=== PATIENT | male | born 1955 | race Caucasian/White ===

== ENCOUNTER 2023-07-24 06:15 | Day surgery (SDC) | payer MEDICARE, BC, SELFPAY ==
[2023-07-24 08:00] VITALS: BMI 45.1
[2023-07-24 08:10] VITALS: BP 156/94
[2023-07-24 08:30] VITALS: BMI 45.1
[2023-07-24 09:55] VITALS: BP 133/74
[2023-07-24 10:00] VITALS: BP 135/74
[2023-07-24 10:15] VITALS: BP 142/83
[2023-07-24 10:31] VITALS: BP 134/83
== END 2023-07-24 10:45 | disposition home or self-care (01) ==
LOC: GI 06:15
PROVIDERS: ATTENDING PHYSICIAN Internal Medicine Gastroenterology
DX: Z12.11 Encounter for screening for malignant neoplasm of colon (principal); D12.2 Benign neoplasm of ascending colon; D12.4 Benign neoplasm of descending colon; D12.5 Benign neoplasm of sigmoid colon; K57.30 Diverticulosis of large intestine without perforation or abscess without bleeding; D12.8 Benign neoplasm of rectum; K62.1 Rectal polyp; K64.8 Other hemorrhoids; K22.70 Barrett's esophagus without dysplasia; K44.9 Diaphragmatic hernia without obstruction or gangrene; R12 Heartburn
CPT/HCPCS: 45385; 45380; 43239; 88305; 88342

== ENCOUNTER → 2023-09-18 10:57 | Outpatient (REF) | payer MEDICARE, BC, SELFPAY ==
[2023-09-19 11:30] LABS: ALT (SGPT) 20 U/L (0-50); AST (SGOT) 23 U/L (17-59); Albumin 4.1 g/dl (3.5-5.0); Alkaline Phosphatase 59 U/L (38-126); Blood Urea Nitrogen 17 mg/dl (9-20); Calcium 9.8 mg/dl (8.4-10.2); Carbon Dioxide 26 mmol/L (22-30); Chloride 104 mmol/L (98-107); Glucose 110 mg/dl (70-99); HDL Cholesterol 57 mg/dl; LDL Cholesterol, Calculated 72 mg/dl; Potassium 4.1 mmol/L (3.5-5.1); Sodium 139 mmol/L (135-145); Total Bilirubin 0.7 mg/dl (0.2-1.3); Total Cholesterol 175 mg/dl (50-199); Total Protein 6.8 g/dl (6.3-8.2); Triglyceride 230 mg/dl (10-149); Uric Acid 8.2 mg/dl (3.5-8.5); Very Low Density Lipoprotein 46 mg/dl (0-30); eGFR > 60.00
[2023-09-19 12:22] LABS: Glycohemoglobin (HgbA1c) 5.5 % (4.0-5.6)
[2023-09-19 14:40] LABS: PSA, Total - Screen 1.95 ng/ml (0.0-4.0)
== END ==
LOC: CLAB 10:57
PROVIDERS: ATTENDING PHYSICIAN Nurse Practitioner
DX: R73.01 Impaired fasting glucose (principal); E78.2 Mixed hyperlipidemia; M10.9 Gout, unspecified; Z12.5 Encounter for screening for malignant neoplasm of prostate
CPT/HCPCS: 80053; 80061; 83036; 84550; G0103

== ENCOUNTER → 2024-03-12 10:10 | Outpatient (REF) | payer MEDICARE, BC, SELFPAY ==
[2024-03-12 12:13] LABS: ALT (SGPT) 23 U/L (0-50); AST (SGOT) 24 U/L (17-59); Albumin 4.2 g/dl (3.5-5.0); Alkaline Phosphatase 47 U/L (38-126); Blood Urea Nitrogen 17 mg/dl (9-20); Calcium 9.2 mg/dl (8.4-10.2); Carbon Dioxide 28 mmol/L (22-30); Chloride 102 mmol/L (98-107); Glucose 119 mg/dl (70-99); HDL Cholesterol 99 mg/dl; LDL Cholesterol, Calculated 79 mg/dl; Potassium 4.6 mmol/L (3.5-5.1); Sodium 140 mmol/L (135-145); Total Bilirubin 0.7 mg/dl (0.2-1.3); Total Cholesterol 215 mg/dl (50-199); Total Protein 6.6 g/dl (6.3-8.2); Triglyceride 186 mg/dl (10-149); Uric Acid 8.3 mg/dl (3.5-8.5); Very Low Density Lipoprotein 37 mg/dl (0-30); eGFR > 60.00
[2024-03-12 12:48] LABS: Glycohemoglobin (HgbA1c) 5.3 % (4.0-5.6)
== END ==
LOC: REG 10:10
PROVIDERS: ATTENDING PHYSICIAN Nurse Practitioner
DX: R73.01 Impaired fasting glucose (principal); E78.2 Mixed hyperlipidemia; M10.9 Gout, unspecified
CPT/HCPCS: 36415; 80053; 80061; 83036; 84550

== ENCOUNTER 2024-09-10 15:10 | Inpatient (IN) | payer MEDICARE, BC, SELFPAY ==
[2024-09-10] VITALS (11 sets, daily range): BP systolic 123–161; BP diastolic 66–123; BMI 53.8; BMI 50.2
--- NOTE | 2024-09-10 11:47 | ED.GENMED ---
History of Present Illness
General
Chief Complaint: Breathing Problem
Source: patient and spouse
Time Seen by Provider: 09/10/24 11:29
History of Present Illness
History of Present Illness:
This patient is a 68-year-old male who states for the past 1 to 2 weeks he has had increasing dyspnea, including dyspnea on exertion associated with orthopnea. He also feels like his upper abdomen is becoming progressively 'swollen' associated with
increasing leg edema. About 10 days ago he had a fall and states that he has a wound at his right lower extremity that is now weeping clear fluid. He is unclear if he has had a weight gain but suspects that he has. He denies chest pain or
pressure, palpitations, nausea, vomiting, headache, dizziness, or other complaints.
Past History
Past History
ED Past Medical History: HTN, Hypercholesterolemia and Other (Gout, reflux)
ED Past Surgical History: Cholecystectomy
Social History
Tobacco: Non-smoker
Alcohol: Occasional
Drug: None
Personal:
Living: with family
Phy Exam
Physical Exam
Physical Exam:
GENERAL: Alert , in no apparent distress
EYE: pupils equal and reactive
NECK: Supple, no significant adenopathy.
ENT: o/p clr, mmm, no stridor, no drool, voice clear.
CARDIAC: Irregularly irregular, tachycardic
LUNGS: Equal breath sounds bilaterally, appears dyspneic when speaking
ABDOMEN: Soft, without focal tenderness, no r/g, no cvat
NEUROLOGICAL: Alert and oriented, no focal neuro deficits
SKIN: Warm and dry, skin intact except as below.
MUSCULOSKELETAL: 2+ bilateral lower extremity edema, well perfused. Superficial abrasion noted at right lower extremity with clear fluid draining
PSYCH: Normal and appropriate interaction.
Scores
[id number] Score for Afib Stroke Risk
Age in Years (65=0, 65-74=1, >/=75=2): 65-74
Sex (Female=+1): Male
Congestive Heart Failure History (Yes=+1): No
Hypertension History (Yes=+1): Yes
Stroke/TIA/Thromboembolism History (Yes=+2): No
Vascular Disease History (Yes=+1): No
Diabetes Mellitus (Yes=+1): No
Score: 2
Anticoagulation Recommendations: Recommend anticoagulation (as validated in nonvalvular fib)
Heart Failure Risk
Heart Failure Risk Score: Not Applicable
Course
Orders/Labs/Results
Orders:
Orders
09/10/24 11:17
Electrocardiogram (*1) Urgent
Reason for Study: Chest Pain
EKG- Treatment ONCE
09/10/24 11:30
COVID-19 Antigen Urgent
Source: Nasal Swab
Comprehensive Metabolic Panel Urgent
Magnesium Urgent
NT-proBNP Urgent
Troponin I Urgent
Influenza A+B Rapid Molecular Urgent
[place]APIN[place]O Source: Nasal Swab
Specimen Description:
09/10/24 11:50
Diltiazem 125 mg/125 ml Nss [Cardizem] 125 mg in 125 ml IV NOW
Initial dose in mg/hr, then titrate:: 5
Titrate to keep:: Heart rate 80-100 bpm
Titrate by mg/hr:: 5 mg/hr
Frequency of titrations (minutes):: 15
Maximum dose in mg/hr:: 15
Diltiazem HCl [Cardizem] 20 mg IV NOW STA
CR Chest - 2 Views Urgent
Comment:
Reason For Exam: sob
09/10/24 11:51
Aspirin 325 mg PO NOW STA
09/10/24 12:31
Furosemide [Lasix] 60 mg IV NOW STA
09/10/24 12:48
Complete Blood Count/With Diff Routine
Free T4 Urgent
TSH Reflex To Free T4 Urgent
09/10/24 13:[address] Non Medication Order As Directed
Physician Order: PTT 6 hours after initial start of Heparin infusion
Above order entered?: Yes
09/10/24 13:15
Heparin 74057 Units/250 ml 25,000 units in 250 ml IV PER PROTOCOL
Weight to be used for heparin protocol in kilograms (kg):: 160.5
Protocol:: Cardiac Tx/Acute Coronary
PTT Goal Range to be used:: PTT 73 to 111 seconds
Order type:: Initial
INITIAL Infusion Dose (UNITS/KG/hr) & then follow protocol:: 12 units/kg/hr
Infusion Dose in UNITS/hr & then follow protocol (UNITS/hr):: 1,000
INFUSION RATE in mL/hr & then follow protocol (mL/hr):: 10
PTT less than or equal to 64 seconds:: Increase rate by 200 units/hr (+ 2 mL/hr)
PTT 64.1 to 72.9 seconds:: Increase rate by 100 units/hr (+ 1 mL/hr)
PTT 73 to 111 seconds:: Target Range. No change in rate.
PTT 111.1 to 130.9 seconds:: Decrease rate by 100 units/hr (- 1 mL/hr)
PTT 131 to 199.9 seconds:: HOLD for 1 hr. Then decrease rate by 200 units/hr (- 2 mL/hr)
PTT greater than or equal to 200 seconds:: HOLD for 2 hrs & Notify Provider. Then decrease by 200 units/hr (-
2 mL/hr)
Lab follow-up:: Each change, PTT q6h until 2 consecutive are therapeutic. Then PTT
daily.
09/10/24 13:31
PTT Urgent
Comment: Obtain baseline before beginning heparin infusion if not already collected
Abnormal Lab Results
09/10/24 09/10/24
11:30 12:48
RBC 4.65 L 10^6/uL
(4.70-6.10)
MCHC 31.7 L g/dL
(33.0-37.0)
RDW 17.2 H %
(11.5-14.5)
Plt Count 112 L 10^3/uL
(130-400)
MPV 12.3 H fL
(7.4-10.4)
Absolute Lymphs (auto) 0.7 L 10^3/uL
(1.2-3.4)
Absolute Monos (auto) 0.8 H 10^3/uL
(0.1-0.6)
Neutrophils % 75.3 H %
(42.2-75.2)
Lymphocytes % 10.3 L %
(20.5-51.1)
Monocytes % 11.7 H %
(1.7-9.3)
Glucose 133 H mg/dl
(70-99)
Magnesium 1.5 L mg/dl
(1.6-2.3)
Total Bilirubin 1.4 H mg/dl
(0.2-1.3)
TSH (Reflex) 5.13 H uIU/ml
(0.47-4.68)
09/10/24 12:48
09/10/24 11:30
Vital Signs
Initial and Last Documented VS:
Initial Vital Signs
Temp Pulse Resp BP Pulse Ox
98.3 F 125 22 161/123 95
09/10/24 11:11 09/10/24 11:11 09/10/24 11:11 09/10/24 11:11 09/10/24 11:11
Last Documented Vital Signs
Temp Pulse Resp BP Pulse Ox
98.3 F 93 22 134/84 95
09/10/24 11:11 09/10/24 14:15 09/10/24 14:15 09/10/24 14:00 09/10/24 11:11
*Critical Care Note
Total Time (30-74mins, 75-104mins- exclusive of procedures): Not Applicable
Update Note
Update Note:
Patient presents to the Emergency Department with leg edema dyspnea abdominal swelling
Number and Complexity of Problems Addressed at the Encounter
� Chronic conditions affecting care:
� Acute Exacerbation and/or Progression of Chronic Illness:
� Differential Diagnosis includes: But not limited to heart failure, A-fib, ACS, PE, etc. etc.
Amount and/or Complexity of Data to be Reviewed and Analyzed
� I performed an independent evaluation of and my interpretation is:
EKG: Read by me, A-fib with RVR, no acute ischemia
CT:
Xrays:Cardiomegaly and mild CHF with small right pleural effusion.
Laboratory Studies: Troponin normal, BNP elevation consistent with suspected heart failure.
Other:
� Review of other/old records reveals:
� Clinical information was obtained by an independent historian: who is bedside
� Prescriptions/Medications Considered but not given:
� Further testing considered but not performed:
Risk of Complications and/or Morbidity or Mortality of Patient Management
� Social determinants of health affecting care:
� Discussion with other providers (PCP, Hospitalists, Consultants, etc):
� Escalation of care including admission/observation vs risk of discharge considered: reassessment, nc in place, no hypoxia, comfortable. Hr low 100's on cardizem gtt. Lasix/asa ordered. Will add heparin, admit for afib with
rvr and pulmonary edema. D/w dr Quintana and pt updated.
ED Attending Note
-
Portions of this chart may have been created with voice recognition software.� Occasional wrong word or��sound alike� substitutions may have occurred due to the inherent limitations of voice recognition software.
Discharge Plan
Departure
Patient Disposition: Admit
Date of Disposition: 09/10/24
Time of Disposition: 13:05
Admit to: Telemetry
Presentation/result/management discussed w/ accepting MD/DO: Hospitalist
Discharge Problem:
afib with rvr, Pulmonary edema
Prescriptions:
No Action
atorvastatin [Lipitor] 10 mg Tablet
10 mg PO DAILY
metoprolol succinate 50 mg Tablet Extended Release 24 Hr
50 mg PO DAILY
indomethacin 50 mg Capsule
50 mg PO BIDPRN PRN (Reason: swelling and pain)
aspirin 81 mg Tablet
81 mg PO WE
Tart Marcos Extract 1,000 mg Capsule
1,000 mg PO DAILY
allopurinol 100 mg Tablet
100 mg PO DAILY
losartan-hydrochlorothiazide 50-12.5 mg Tablet
1 tab PO DAILY
omeprazole 20 mg Tablet,Delayed Release (Dr/Ec)
20 mg PO DAILY
Referrals:
UNKNOWN - PT DOES,NOT KNOW [Unknown Provider] -
Interventions
Interventions:
*Risk Screen - Suicide Last Done: 09/10/24 11:11
*General Assessment Last Done: 09/10/24 11:11
*Neglect/Abuse Screening Last Done: 09/10/24 11:11
*ED- Fall Risk Assessment Last Done: 09/10/24 11:24
ED- Cardiac Assessment Last Done: 09/10/24 11:24
ED- Pulmonary Assessment Last Done: 09/10/24 11:24
Discharge Date and Time
Print Language: URUGUAYAN
[2024-09-10 12:18] LABS: ALT (SGPT) 22 U/L (0-50); AST (SGOT) 29 U/L (17-59); Alkaline Phosphatase 110 U/L (38-126); Blood Urea Nitrogen 19 mg/dl (9-20); Calcium 9.4 mg/dl (8.4-10.2); Carbon Dioxide 28 mmol/L (22-30); Chloride 106 mmol/L (98-107); Glucose 133 mg/dl (70-99); Magnesium 1.5 mg/dl (1.6-2.3); Potassium 4.4 mmol/L (3.5-5.1); Sodium 140 mmol/L (135-145); Total Bilirubin 1.4 mg/dl (0.2-1.3); Total Protein 6.9 g/dl (6.3-8.2); eGFR > 60.00
[2024-09-10 12:21] LABS: COVID-19 Antigen Negative (Negative)
[2024-09-10 12:29] LABS: NT-proBNP 2580 pg/ml; Troponin I < 0.012 ng/ml
[2024-09-10] MEDS: ASPIRIN 325 MG PO (12:43)
[2024-09-10] MEDS: CARDIZEM 125 IV ×2 (12:43→20:56)
[2024-09-10] MEDS: CARDIZEM 20 MG IV (12:43)
[2024-09-10] MEDS: LASIX 60 MG IV (12:43)
--- NOTE | 2024-09-10 13:16 | HPS.HSE ---
Addendum entered and electronically signed by Missy Nolan MD 09/10/24 15:46:
I personally performed a history and physical exam of the patient and discussed management with the resident. I reviewed the resident's note and agree with the documented findings and plan of care HPI/CC.
GENERAL: well developed, well nourished, morbidly obese male in no apparent distress
HEENT: NC/AT--O2 NC in place
HEART: irreg irreg
LUNGS : clear to auscultation bilaterally
ABDOM: soft, nontender, nondistended, + bowel sounds
EXT: no cyanosis, clubbing--- 4+ pitting edema bilateral LE
NEUROLOGIC: grossly intact
SKIN: small area right lower inner leg abrasion?--weeping
SOB--multifactorial from New onset Afib with RVR and new onset CHF exacerbation (type unknown)--ADMIT to IVU--consult cards--cont IV heparin drip and cardizem drip--CM will need to white Eliquis for discharge--troponin neg--will need echo
Acute hypoxic respiratory failure--multifactorial due to Pulmonary edema likely from new onset CHF--wean O2 as able--new onset CHF could be due to viral cardiomyopathy, ischemic, rate related due to rapid afib---apprec cards--cont diuresis, daily
weights, I/Os
RLE nonhealing wound--likely due to edema--consult wound care
Elevated blood sugar--no history of DM--check HGB A1C
Hypomagnesemia--likely from ETOH intake--replete
Hyperbilirubinemia- monitor
Thrombocytopenia--?etiology--ETOH, other--follow for now
Hypothyroidism-- TSH 5- f/u outpt
Morbid obesity due to excess calories--affects all aspects of care- diet counselling-- consider outpt sleep apnea testing
Essential HTN--cont home losartan-hctz, metoprolol succinate
HLD-- cont home statin
GERD-- cont home omeprazole
Gout- cont allopurinol
DVT proph-- heparin gtt
Code status--FULL CODE
Original Note:
Family Physician
-
Family Physician: Loretta Stewart
Chief Complaint
-
SOB
History of Present Illness
Pt is a 68yo M pmh HTN, HLD, GERD, gout presenting for dyspnea w orthopnea. Pt reports his abdomen and leg are becoming swollen. This has been going on for the past several months since he had an URI. Pt promised family he would come in today if he
was not feeling better. Pt reports chest tightness, SOB, abdominal/BLLE swelling, N. -CP, -fever, -V/D/C. 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 Fell 2 weeks ago, scraping the inside of his lower R leg on the ground. The wound does not
appear to be healing and 'weeps.' present at bedside.
Medical History
Past Medical History
Past Medical History: Reports GERD, HTN, Hypercholesterolemia and Other (gout)
Past Surgical History: Reports Cholecystectomy
Social History
Tobacco: Non-smoker
Alcohol: Occasional
Drug: None
Personal:
Living: With Family
Family History
Family History: CAD (father) and Cancer (mother-esophageal)
Allergies / Home Medications
Allergies reflects when Allergies were last updated in [employer].
Home Medications with original date entered in [employer]
Allergy/Medication List:
Allergies
Allergy/AdvReac Type Severity Reaction Status Date / Time
Penicillins Allergy Rash Verified 09/10/24 11:16
Home Medications
aspirin 81 mg tablet 81 mg PO WE 07/24/23
atorvastatin 10 mg tablet (Lipitor) 10 mg PO DAILY 07/24/23
indomethacin 50 mg capsule 50 mg PO BIDPRN PRN swelling and pain 07/24/23
metoprolol succinate 50 mg tablet,extended release 24 hr 50 mg PO DAILY 07/24/23
sour marcos extract 1,000 mg capsule (Tart Marcos Extract) 1,000 mg PO DAILY 07/24/23
allopurinol 100 mg tablet 100 mg PO DAILY 09/10/24
losartan 50 mg-hydrochlorothiazide 12.5 mg tablet 1 tab PO DAILY 09/10/24
omeprazole 20 mg tablet,delayed release 20 mg PO DAILY 09/10/24
Review of Systems
-
A 12 point ROS was completed and negative except as noted: Yes
Constitutional: Reports Weight Gain
EENT: Reports No Symptoms
Respiratory: Reports Trouble Breathing; Denies Cough
Cardiac: Reports No Symptoms
Abdomen/GI: Reports Nausea and Other (abdominal 'tightness'); Denies Abdominal Pain, Vomiting, Diarrhea or Constipated
: Reports No Symptoms
Musculoskeletal: Reports Edema
Skin: Reports Rash
Neurological: Reports Dizzy
Endocrine: Reports No Symptoms
Hematologic/Lymphatic: Reports No Symptoms
Psych: Reports No Symptoms
Physical Exam
Vital Signs
Vital Signs
Temp Pulse Resp BP Pulse Ox
98.3 F 105 21 133/95 95
09/10/24 11:11 09/10/24 13:00 09/10/24 13:00 09/10/24 13:00 09/10/24 11:11
Physical Exam
General: Well Developed, Well Nourished, No Apparent Distress and Morbidly Obese
HEENT: NormoCephalic, Anicteric, Atraumatic, Good Dentition, Hearing Impaired and Oxygen (3L O2 via NC)
Respiratory: Clear and Accessory Resp Muscle Use
Cardiac: S1/S2, Irregular Rhythm and Tachycardia
GI: Soft, Non Tender, Non Distended and Normal Bowel Sounds
Genito-urinary: Deferred by me
Musculoskeletal: No Clubbing, No Cyanosis, Edema, Left Lower Extremity and Edema, Right Lower Extremity
Skin: Warm, Dry and Lesions
Neuro: Awake, Alert and Oriented
Hematologic/Lymphatic: No Lymphadenopathy
Psych: Calm
Laboratory Results
-
09/10/24 11:30
Laboratory Results
Total Bilirubin 1.4 mg/dl (0.2-1.3) H 09/10/24 11:30
AST 29 U/L (17-59) 09/10/24 11:30
ALT 22 U/L (0-50) 09/10/24 11:30
Alkaline Phosphatase 110 U/L (38-126) 09/10/24 11:30
Troponin I < 0.012 ng/ml 09/10/24 11:30
Impression/Plan
-
IMPRESSION:
Pt is a 68yo M pmh HTN, HLD, GERD, gout presenting for dyspnea w orthopnea. Pt reports his abdomen and leg are becoming swollen. Found to be in afib w RVR w pulmonary edema. On heparin gtt and cardizem gtt.
PLAN:
New onset Afib with RVR
- troponin undetectable
- admit to IVU
- heparin gtt
- cardizem gtt
- appreciate cardiology input
Acute hypoxic respiratory failure secondary to Pulmonary edema
- likely secondary to new onset CHF - proBNP 2580 vs afib w rvr vs viral myocarditis
- CXR: Cardiomegaly and mild CHF with small right pleural effusion
- I/O's
- keep K>4, Mg>2
- lasix
- echo
RLE nonhealing wound
- woundcare input appreciated
- diurese
Elevated blood sugar
- HbA1c
Hypomagnesemia
- replete
Hyperbilirubinemia
- monitor
Thrombocytopenia
- monitor
- PTT pending
Hypothyroidism
- TSH 5
- f/u outpt
Morbid obesity due to excess calories
- diet counselling
- consider outpt sleep apnea testing
HTN
- cont home losartan-hctz, metoprolol succinate
HLD
- cont home statin
GERD
- cont home omeprazole
Gout
- cont allopurinol
Diet: 2g sodium
DVT ppx: heparin gtt
Code status: FULL CODE
[2024-09-10 13:23] LABS: % Eosinophils 1.3 % (0-6); % Immature Granulocytes 0.4 % (0-0.5); % Lymphocytes 10.3 % (20.5-51.1); % Monocytes 11.7 % (1.7-9.3); % Neutrophils 75.3 % (42.2-75.2); Absolute Basophils 0.1 10^3/uL (0-0.2); Absolute Eosinophils 0.1 10^3/uL (0-0.7); Absolute Lymphocytes 0.7 10^3/uL (1.2-3.4); Absolute Monocytes 0.8 10^3/uL (0.1-0.6); Absolute Neutrophils 5.1 10^3/uL (1.4-6.5); Mean Corp Hgb Conc. 31.7 g/dL (33.0-37.0); Mean Corpuscular Volume 88.2 fL (80.0-94.0); Mean Platelet Volume 12.3 fL (7.4-10.4); Nucleated Red Blood Cells % 0 % (-); Platelet Count 112 10^3/uL (130-400); Red Blood Cell Count 4.65 10^6/uL (4.70-6.10); Red Cell Dist. Width 17.2 % (11.5-14.5); White Blood Cell Count 6.8 10^3/uL (4.8-10.8)
[2024-09-10] MEDS: HEPARIN 25000 UNITS/250 ML IV (13:29)
[2024-09-10 13:55] LABS: APTT 27.8 Sec (23.4-35.0)
[2024-09-10 14:03] LABS: TSH Reflex To Free T4 5.13 uIU/ml (0.47-4.68)
[2024-09-10 14:33] LABS: Free T4 1.56 ng/dl (0.78-2.19)
--- NOTE | 2024-09-10 15:34 | CM ---
Patient seen at bedside with in ED and physicians. Patient states that he lives [place] condo with no DME other than a cane he uses occasionally. Patient PCP is from [place]; Vilma MENA. Patient uses the [facility] in [place]. Patient is
independent and driving. Patient is [place] and stated that he can turn up his hearing aides if needed. CM will continue to follow for discharge planning needs.
Plan; home with , watch for VN needs.
--- NOTE | 2024-09-10 15:58 | CON.CAR ---
Addendum entered and electronically signed by Chichi Avila MD 09/10/24 16:30:
I saw and examined the patient.
The TILE FINISHER's note was reviewed and I agree with the note.
Comment: 68 y/o pt with morbid obesity, HTN, hypertriglyceridemia, and gout who presents to the emergency room with worsening shortness of breath dyspnea, abdominal swelling and edema. He states his symptoms started around May or June 2024
after a viral illness, however swelling and orthopnea really began about 3 weeks ago. He presents in atrial fibrillation as well but no awareness of the arrhythmia. He is drinking several times a week. He is retired.
On exam he is morbidly obese with pitting edema from his feet up through his abdomen. Lungs cta, irreg irreg, no m/r/g.
Labs show probnp 2580 CXR on my review; pulm edema cardiomegaly.
ECG af with rvr
Impression: Acute heart failure unknown EF: needs agressive diuresis as he is massively volume overloaded. Echo with contrast to establish EF. GDMT as indicated, may need to consider LHC depending on EF. CHF team consults for education re daily
weight, fluid and salt restrction. Etiology viral vs tachymediated etc. Next step in diagnosing etiology depending on echo.
AF unknown duration: for now tolerating Diltiazem---given cardiomegaly possible ef down, will cautiously continue diltiazem but will transition to metop succinate when able. Heparin until it is clear he won't need a rich. Counseled about etoh
cessation. WIll need op sleep study and weight loss.
Morbid obesity: glp 1 ra should be considered given comorbidities.
HTN; chronic adjust medications to gdmt
Original Note:
Consultation
Consultation Request
Date/Time Consultation Requested: 09/10/2024 1500
Date/Time Consultation Performed: 09/10/2024 1500
Requesting Provider: Dr. Butler
Performing Provider: Dr. Avila
Reason for Consultation: AF RVR, CHF
Medical History
-
Chief Complaint: SOB, LE edema
History of Present Illness:
68 y/o pt with HTN, hypertriglyceridemia, obesity, and gout who presents to the emergency room with worsening shortness of breath dyspnea and edema. He states his symptoms started around May or June 2024 after a viral illness. He has
progressively become more dyspneic and has had progressive lower extremity edema. He is now currently sleeping in a chair. He becomes dyspneic with just walking from room to room. He states he has been compliant with his antihypertensives. He
denies chest pain or palpitations with these events.
Past Medical History
Past Medical History: HTN, Hypercholesterolemia and Other (asthma)
Past Surgical History: Cholecystectomy
Social History
Tobacco: Non-Smoker
Alcohol: Occasional
Living: With Family
Family History
Family History: Reviewed & Not Pertinent
Allergies / Home Medications
Allergy/AdvReac Type Severity Reaction Status Date / Time
Penicillins Allergy Rash Verified 09/10/24 11:16
�Medication �Instructions �Recorded �Confirmed �Type
aspirin 81 mg tablet 81 mg PO WE 07/24/23 09/10/24 History
atorvastatin 10 mg tablet (Lipitor) 10 mg PO DAILY 07/24/23 09/10/24 History
indomethacin 50 mg capsule 50 mg PO BIDPRN PRN swelling and 07/24/23 09/10/24 History
pain
metoprolol succinate 50 mg 50 mg PO DAILY 07/24/23 09/10/24 History
tablet,extended release 24 hr
sour marcos extract 1,000 mg 1,000 mg PO DAILY 07/24/23 09/10/24 History
capsule (Tart Marcos Extract)
allopurinol 100 mg tablet 100 mg PO DAILY 09/10/24 09/10/24 History
losartan 50 mg-hydrochlorothiazide 1 tab PO DAILY 09/10/24 09/10/24 History
12.5 mg tablet
omeprazole 20 mg tablet,delayed 20 mg PO DAILY 09/10/24 09/10/24 History
release
Review of Systems
-
History Source: Patient
Constitutional: Weight Gain and Fatigue
EENT: No Symptoms
Respiratory: Trouble Breathing
Abdomen/GI: Other (bloating)
: No Symptoms
Musculoskeletal: No Symptoms and Edema (increased bilat LE edema thigh to feet)
Skin: Other (RLE abrasion)
Neurological: No Symptoms
Endocrine: No Symptoms
Hematologic/Lymphatic: No Symptoms
Physical Exam
Vital Signs
Temp Pulse Resp BP Pulse Ox
98.3 F 90 24 126/86 95
09/10/24 11:11 09/10/24 15:30 09/10/24 15:30 09/10/24 15:00 09/10/24 11:11
Lab Results
09/10/24 12:48
09/10/24 11:30
Troponin I < 0.012 ng/ml 09/10/24 11:30
[id number] Pept 2580 pg/ml 09/10/24 11:30
Physical Exam
General: Well Developed and No Apparent Distress
HEENT: Normocephalic, Anicteric and Moist Mucous Membranes
Respiratory: Crackles (bases bilat)
Cardiac: S1/S2, Irregular Rhythm and Peripheral Edema (severe bilat LE edema )
Breast: N/A
GI: Soft, Normal Bowel Sounds and Distended
Musculoskeletal: Edema (severe bilat LE edema)
Skin: Warm and Dry
Neuro: AO x 3
Impression / Plan
-
Acute CHF unknown type:
-BNP 2580, CXR with CHF pleural effusions
-Echo with Definity ordered
-trend troponins
-Pt in AF RVR, IV diltiazem for now for rate control
-requires intense in pt management and monitoring of vs and labs with therapy.
-on chronic bblocker for BP-con't
-lasix 40mg IV BID
-add farxiga in am
-eventual ischemic eval.
-eventual SURAJ work up.
-replete Mg
AF RVR:
-IV diltiazem for rate control
-Will require diuresis prior to SHERICE/cardioversion- plan for 09/12/24.
-CHADSVASC at least 3 -IV heparin for anticoagulation then eventual eliquis.
HTN:
-states had been stable on antihypertensives.
hyperlipidemia:
-check lipids
-con't statin
Data Reviewed
-
EKG: Tracing Personally Visualized and interpreted (AF RVR 138 bpm, non specific ST abn )
Radiology: Report Reviewed by me ( 09/10/24 CXR: Cardiomegaly and mild CHF with small right pleural effusion.)
Medical Tests (Nuc Med, Echo etc): Other (Echo 2011: EF 55%, LVH, no significant valve abn)
Labs: Labs Reviewed by me and Discussed with Patient
[2024-09-10] MEDS: MAGNESIUM OXIDE 500 MG PO (17:08)
--- NOTE | 2024-09-10 17:54 | PTCARENOTE ---
Rec'd pt from ED. Tele- afib. HR 80-100s. Heparin gtt infusing at 10ml/hr and cardizem gtt infusing at 15ml/hr. Pt sating 96% on 3L O2 NC. Oriented pt to room. Plan of care reviewed w/ pt and . Verbalizes understanding. Currently in bed; call
regina w/in reach.
[2024-09-10 19:51] LABS: APTT 42.6 Sec (23.4-35.0)
--- NOTE | 2024-09-10 21:34 | PTCARENOTE ---
Assumed care of patient at change of shift. AAOx3, [place] w/ b/l hearing aids. Tele monitor shows Afib w/ occasional PVCs. HR in the 80-90's at rest. IV Cardizem infusing at 15ml/hr. IV Heparin currently infusing at 12ml/hr, next ptt due at 02:05.
Denies any pain. Patient c/o CULP and orthopnea. Currently sating 96% on 2L of O2. Lungs decreased in the bases w/ and occasional cough. Patient urinating in urinal w/out difficulty. Pt educated on CHF/Afib, packets given. Patient aware of POC, and
can make needs known. Call tapia in reach.
[2024-09-11] VITALS (7 sets, daily range): BP systolic 109–133; BP diastolic 71–90; BMI 50.0
[2024-09-11 02:42] LABS: Hematocrit 39.1 % (39.0-52.0); Hemoglobin 12.3 g/dL (13.0-18.0); Mean Corp Hgb Conc. 31.5 g/dL (33.0-37.0); Mean Corpuscular Hgb 28.1 pg (27.0-31.0); Mean Corpuscular Volume 89.3 fL (80.0-94.0); Platelet Count 98 10^3/uL (130-400); Red Blood Cell Count 4.38 10^6/uL (4.70-6.10); Red Cell Dist. Width 17.2 % (11.5-14.5); White Blood Cell Count 6.6 10^3/uL (4.8-10.8)
[2024-09-11 03:00] LABS: ALT (SGPT) 21 U/L (0-50); AST (SGOT) 24 U/L (17-59); Albumin 3.8 g/dl (3.5-5.0); Alkaline Phosphatase 106 U/L (38-126); Blood Urea Nitrogen 18 mg/dl (9-20); Calcium 9.3 mg/dl (8.4-10.2); Carbon Dioxide 34 mmol/L (22-30); Chloride 102 mmol/L (98-107); Estimated Creatinine Clearance 100 ml/min; Glucose 119 mg/dl (70-99); Magnesium 1.5 mg/dl (1.6-2.3); Potassium 3.9 mmol/L (3.5-5.1); Sodium 142 mmol/L (135-145); Total Bilirubin 1.6 mg/dl (0.2-1.3); Total Protein 6.4 g/dl (6.3-8.2); eGFR > 60.00
[2024-09-11] MEDS: MAGNESIUM OXIDE 500 MG PO (03:48)
--- NOTE | 2024-09-11 03:51 | PTCARENOTE ---
Morning labs obtained. Magnesium 1.5, Delmi Hilliard NP made aware. Orders obtained/carried out for 500mg PO Magnesium--see MAR for details.
Pts plt count 98, IV Heparin gtt currently infusing. Silvino GORE SEAMER aware, no new orders obtained at this time. Call tapia in reach.
[2024-09-11] MEDS: CARDIZEM 125 IV (05:15)
[2024-09-11] MEDS: INDOCIN 50 MG PO (06:18)
--- NOTE | 2024-09-11 07:42 | W.PN.HOSP.TC ---
Addendum entered and electronically signed by Missy Nolan MD 09/11/24 17:33:
I saw and evaluated the patient independently. I reviewed the resident�s note and agree with findings and plan as documented by Dr. Butler.
GENERAL: well developed, well nourished, morbidly obese male in no apparent distress
HEENT: NC/AT--O2 NC in place
HEART: irreg irreg
LUNGS : clear to auscultation bilaterally
ABDOM: soft, nontender, nondistended, + bowel sounds
EXT: no cyanosis, clubbing--- 4+ pitting edema bilateral LE
NEUROLOGIC: grossly intact
SKIN: small area right lower inner leg abrasion?--weeping
SOB--multifactorial from New onset Afib with RVR and new onset HFpEF CHF exacerbation (echo with EF 50% with hypokinesis)--apprec cards--cont IV heparin drip and cardizem drip--CM will need to white Eliquis for discharge--troponin neg--concern for
PE based on dilated and hypokinetic RV--CT chest ordered
Acute hypoxic respiratory failure--multifactorial due to Pulmonary edema likely from new onset CHF--wean O2 as able--new onset CHF could be due to viral cardiomyopathy, ischemic, rate related due to rapid afib---apprec cards--cont diuresis, daily
weights, I/Os
RLE nonhealing wound (POA)--likely due to edema--apprec wound care
Elevated blood sugar--no history of DM-- HGB A1C 6.4--consider DM education
Hypomagnesemia--likely from ETOH intake--replete
Hyperbilirubinemia- monitor
Thrombocytopenia--?etiology--ETOH, other--follow for now
Hypothyroidism-- TSH 5- f/u outpt
Morbid obesity due to excess calories--affects all aspects of care- diet counselling-- consider outpt sleep apnea testing
Essential HTN--cont home losartan-hctz, metoprolol succinate
HLD-- cont home statin
GERD-- cont home omeprazole
Gout- cont allopurinol
DVT proph-- heparin gtt
Code status--FULL CODE
Original Note:
Today's Communication/Plan
-
- continue diuresing
Assessment / Plan
Assessment / Plan
IMPRESSION:
Pt is a 68yo M pmh HTN, HLD, GERD, gout presenting for dyspnea w orthopnea. Pt reports his abdomen and leg are becoming swollen. Found to be in afib w RVR w pulmonary edema. On heparin gtt and cardizem gtt.
PLAN:
New onset Afib with RVR
- troponin undetectable
- admit to IVU
- heparin gtt
- cardizem gtt
- appreciate cardiology input
Acute hypoxic respiratory failure secondary to Pulmonary edema
- likely secondary to new onset CHF - proBNP 2580 vs afib w rvr vs viral myocarditis
- CXR: Cardiomegaly and mild CHF with small right pleural effusion
- I/O's
- daily weights - trending down
- keep K>4, Mg>2
- PT/OT
- lasix
- echo
RLE nonhealing wound
- woundcare input appreciated
- diurese
Elevated blood sugar
- HbA1c
Hypomagnesemia
- replete
Normocytic anemia
- monitor
Hyperbilirubinemia
- monitor
Thrombocytopenia
- monitor
- PTT pending
Hypothyroidism
- TSH 5
- f/u outpt
Morbid obesity due to excess calories
- diet counselling
- consider outpt sleep apnea testing
HTN
- cont home losartan-hctz, metoprolol succinate
HLD
- cont home statin
- lipid panel wnl
GERD
- cont home omeprazole
Gout
- cont allopurinol
Diet: 2g sodium
DVT ppx: heparin gtt
Code status: FULL CODE
Anticipated Discharge: > 48 hours
Subjective/Interval History
-
Date of Service: September 11, 2024
Mg 1.5 overnight, repleted w 500mg mag oxide.
Objective Data
-
Labs:
Laboratory Results
09/10/24 09/11/24 09/11/24
19:30 02:09 09:10
WBC 6.6
Hgb 12.3 L
Hct 39.1
Plt Count 98 L
APTT 42.6 H 43.0 H Pending
Sodium 142
Potassium 3.9
Chloride 102
Carbon Dioxide 34 H
BUN 18
Creatinine 1.0
Glucose 119 H
Calcium 9.3
Total Bilirubin 1.6 H
AST 24
ALT 21
Alkaline Phosphatase 106
Vital Signs:
Vital Signs
Temp Pulse Resp BP Pulse Ox
98.1 F 84 20 123/77 97
09/11/24 02:16 09/11/24 06:00 09/11/24 02:16 09/11/24 02:02 09/11/24 02:16
I&O
09/10/24 09/11/24 09/12/24
06:59 06:59 06:59
Intake Total 870 / 870
Output Total 800 / 800
Balance 70 / 70
Review of Systems
-
History Source: Patient
Constitutional: Reports No Symptoms
Respiratory: Reports Trouble Breathing
Cardiac: Reports No Symptoms
Abdomen/GI: Reports No Symptoms
Musculoskeletal: Reports Edema
Neuro: Reports No Symptoms
Physical Exam
-
General: Well Developed, Well Nourished, Respiratory Distress and Morbidly Obese
HEENT: Normocephalic, Atraumatic and Oxygen (2L O2 via NC)
Respiratory: Accessory Resp Muscle Use and Decreased Breath Sounds
Cardiac: S1/S2 and Irregular Rhythm
GI: Soft, Nontender, Nondistended and Normal Bowel Sounds
Musculoskeletal: No Clubbing, No Cyanosis, Edema, Right Lower Extrem and Edema, Left Lower Extrem
Neuro: Awake, Alert and Oriented
Psych: Calm
[2024-09-11] MEDS: KCL 40 MEQ PO (08:38)
[2024-09-11] MEDS: COZAAR 50 MG PO (08:38)
[2024-09-11] MEDS: TOPROL XL 50 MG PO ×2 (08:39→20:31)
[2024-09-11] MEDS: PROTONIX 40 MG PO (08:39)
[2024-09-11] MEDS: ZYLOPRIM 100 MG PO (08:39)
[2024-09-11] MEDS: LIPITOR 10 MG PO (08:39)
[2024-09-11] MEDS: LASIX 40 MG IV ×2 (08:40→18:52)
[2024-09-11] MEDS: FLUSH (NSS) 1 FLUSH IV (08:40)
--- NOTE | 2024-09-11 08:54 | PTCARENOTE ---
Patient resting in bed this morning, medicated by prior shift with indocin for gout pain left foot which he states is now helping. Remains on cardizem and heparin infusions, AF with rate in the 70-80's. Patient being seen by [facility] now.
[2024-09-11 08:58] LABS: HDL Cholesterol 64 mg/dl; LDL Cholesterol, Calculated 58 mg/dl; Total Cholesterol 138 mg/dl (50-199); Triglyceride 80 mg/dl (10-149); Very Low Density Lipoprotein 16 mg/dl (0-30)
--- NOTE | 2024-09-11 08:59 | W.PN.CD ---
Today's Communication / Plan
-
IV diuresis
Added Aldactone
Echo
Wont be ready for SHERICE/DCCV 09/12/2024
Impression / Plan
-
Acute CHF unknown type:
-BNP 2580, CXR with CHF pleural effusions
-Echo with Definity ordered
-single trop is normal, no clinical concern for acute ischemia
-IV LASIX 40 BID
-Added Aldactone
-Checking cost of ARNI/SGLT2-I/Eliquis
-Rate control of AFib with PO metoprolol ER for now
-On outpatient ARB
-Add Farxiga soon if cost OK
-Once more diuresis is in place adjust more meds based on echo/tolerance/affordability
-Will need education
-Outpatient stress test reasonable
New AFib, persisting so far
- Rate: Better, on new metoprolol
- IV heparin now, checking cost of Eliquis
- Anticipate SHERICE/cardioversion, I doubt he will be ready for 09/12/2024
- [id number] at least 3 (HF, HTN, age1)
- Early ablation is appropriate but only after closer to euvolemia and preferably he loses caloric weight of 20-50 pounds (outpatient)
- [place] need education on anticoagulation and afib risk factor modification
- Outpt sleep study reasonable
HTN
Hyperlipidemia
Brand's esophagus => PPI
Colonic polyps, tubular adenomas
Morbid obesity, BMI 49.9 but he has a lot of fluid to remove with diuresis
Gout with flare
Hard of hearing, uses hearing aid
Subjective: Feeling better
Physical Exam
Vital Signs/Labs
Vital Signs
Temp Pulse Resp BP Pulse Ox
98.5 F 80 20 133/81 95
09/11/24 08:00 09/11/24 07:01 09/11/24 08:00 09/11/24 07:01 09/11/24 08:00
09/10/24 09/11/24 09/12/24
06:59 06:59 06:59
Actual Weight 149 kg
09/11/24 02:09
09/11/24 02:09
APTT 43.0 Sec (23.4-35.0) H 09/11/24 02:09
Magnesium 1.5 mg/dl (1.6-2.3) L 09/11/24 02:09
Triglycerides 80 mg/dl (10-149) 09/11/24 02:09
LDL Cholesterol, Calc 58 mg/dl 09/11/24 02:09
VLDL Cholesterol, Calc 16 mg/dl (0-30) 09/11/24 02:09
HDL Cholesterol 64 mg/dl 09/11/24 02:09
Free T4 1.56 ng/dl (0.78-2.19) 09/10/24 12:48
09/10/24
11:30
Oaz-J-Lpxukldeyym Pept 2580
LAB Results
09/10/24
11:30
Troponin I < 0.012
Physical Exam
Constitutional: No acute distress
EENT: Anicteric
Cardiovascular: Rhythm/rate is irregular, Pedal edema present (3+) and S1S2 is normal
Respiratory: Respiratory effort normal and Crackles Present
GI: Soft and Non tender
Neuro/Psych: AO x 3
Data Reviewed
-
Date of Service: September 11, 2024
[2024-09-11 09:08] LABS: Glycohemoglobin (HgbA1c) 6.4 % (4.0-5.6)
[2024-09-11 09:39] LABS: APTT 62.3 Sec (23.4-35.0)
--- NOTE | 2024-09-11 09:49 | CARDSERVLU ---
Echocardiogram with Lumason completed after protocol screening completed. Allergies verified.
Patent IV site: __R hand___
IV site flushed with 0.9% NaCl pre and post administration.
Diluted bolus method utilized to enhance visualization of ventricular coronel.
Total volume given: __2.5_ mL
Patient tolerated all procedures well without complications.
[2024-09-11] MEDS: HEPARIN 25000 UNITS/250 ML IV (09:53)
[2024-09-11] MEDS: ALDACTONE 25 MG PO (10:01)
[2024-09-11] MEDS: MAGNESIUM SULFATE 100 IV (10:01)
--- NOTE | 2024-09-11 10:18 | WOUNDNOTE ---
RIGHT MEDIAL CALF
--- NOTE | 2024-09-11 10:21 | WOUNDNOTE ---
RIGHT LOWER LEG
--- NOTE | 2024-09-11 10:22 | WOUNDNOTE ---
RIGHT ANTERIOR LOWER LEG
--- NOTE | 2024-09-11 10:23 | WOUNDNOTE ---
BILATERAL LOWER EXTREMITIES
--- NOTE | 2024-09-11 10:25 | WOUNDNOTE ---
WO RN note: Patient admitted with Afib, RVR and Pulmonary edema.
See H&P for complete history. Obesity.
PMH: ED Past Medical History: HTN, Hypercholesterolemia and Other (Gout, reflux)
ED Past Surgical History: Cholecystectomy
Wound Location and type/assessment: Patient admitted with: R lower leg abrasions from tripping and falling on concrete reports patient. Has chronic Lymphedema he states but does not use any compression at home. States he does have a recliner chair
and can elevate his legs at home, assists with wound care. + palpable pedal pulses, heels are intact, leg edema 2-3+. Patient able to turn with minimal assist, sacrum intact.
Appetite: Good. community educator on consult.
Pressure redistribution devices in place: On Accumax, pillow under calves.
Plan: R leg applied Xeroform, ABD pad and angela. Called [facility] for boaz wraps, nurse Bridgette will apply knee high when arrives. Will order mineral oil for dry skin on legs to start tomorrow.
Will confirm orders with hospitalist and updated nurse. Updated care plan and will follow as needed.
Note to case management of equipment requested for discharge: VN if needed.
Recommend follow up at wound care center upon discharge.
--- NOTE | 2024-09-11 10:51 | CM ---
Addendum entered by Paola Su 09/11/24 11:08:
Placed the one month free coupons for Farxiga, Eliquis and Entresto in his red discharge folder.
Original Note:
Reviewed chart. Met with Mr. Cantor to review discharge plans. He states prior to admission he resides with his spouse in a two story home with three steps to enter. He states he has a full flight of steps to get to bedroom/full bathroom. He states
he has a powder room on the first floor. He states prior to admission he was independent with ambulation and adls. He states he sometimes uses a single point cane when needed. He has a single point cane at home He has a prescription plan and uses
[facility]. Telephone call to his insurance,([phone]) to check on co-pay for Farxiga, Eliquis and Entresto. He still has part of his deductible that has to be met. So his first script for Farxiga for 90 days would be $851.57, after he
meets his deductible he would pay 25% of the cost of the medications. Eliquis 5 mg po bid co-pay would be 25% of the cost of the medication-Approx. $125.00 a month, Entresto 24/26 mg po bid co-pay would be 25% cost of the medications. All three
medications would need a prior auth. The prior auth number is( [id number]) Reviewed co-pays with Mr. Cantor. He would like to review with medical team but he would prefer not to be on the expensive medications. He does have a prescription plan and
uses [facility]. We also reviewed [facility]. He is declining [facility] Services at this time. Medical work-up in progress. The discharge plan is to return home with his spouse when medically stable.
--- NOTE | 2024-09-11 16:01 | DOWNTIME ---
There was a [employer] Client Flaking Roll Operator Downtime on 09/11/2024 from 1230 to 09/11/2024 at 1550. Downtime documentation of patient's care, including medication administrations, has been reconciled in the electronic record per guidelines. Refer to the
patient's paper chart under the miscellaneous tab to see printed paper medication records and downtime forms.
[2024-09-11 17:36] LABS: APTT 93.2 Sec (23.4-35.0)
[2024-09-11 18:30] LABS: Magnesium 2.3 mg/dl (1.6-2.3)
[2024-09-11 23:39] LABS: APTT 113.3 Sec (23.4-35.0)
[2024-09-12] VITALS (8 sets, daily range): BP systolic 87–132; BP diastolic 72–87; BMI 49.4
[2024-09-12] MEDS: HEPARIN 25000 UNITS/250 ML IV (02:26)
[2024-09-12] MEDS: INDOCIN 50 MG PO (04:10)
[2024-09-12 06:30] LABS: Hematocrit 38.4 % (39.0-52.0); Hemoglobin 12.1 g/dL (13.0-18.0); Mean Corp Hgb Conc. 31.5 g/dL (33.0-37.0); Mean Corpuscular Hgb 28.3 pg (27.0-31.0); Mean Corpuscular Volume 89.7 fL (80.0-94.0); Mean Platelet Volume 12.4 fL (7.4-10.4); Platelet Count 93 10^3/uL (130-400); Red Blood Cell Count 4.28 10^6/uL (4.70-6.10); Red Cell Dist. Width 17.2 % (11.5-14.5); White Blood Cell Count 5.9 10^3/uL (4.8-10.8)
[2024-09-12 06:32] LABS: APTT 97.9 Sec (23.4-35.0)
--- NOTE | 2024-09-12 07:41 | W.PN.HOSP.TC ---
Today's Communication/Plan
-
- diurese
- start metformin
Assessment / Plan
Assessment / Plan
IMPRESSION:
Pt is a 68yo M pmh HTN, HLD, GERD, gout presenting for dyspnea w orthopnea. Pt reports his abdomen and leg are becoming swollen. Found to be in afib w RVR w pulmonary edema. On heparin gtt and cardizem gtt.
PLAN:
New onset Afib with RVR
- [id number] - 3
- heparin gtt
- cardizem gtt
- appreciate cardiology input - SHERICE/cardioversion when euvolemic
Acute hypoxic respiratory failure secondary to new onset HFpEF (EF 50%)
- CXR: Cardiomegaly and mild CHF with small right pleural effusion
- echo 09/11: LVEF 50%, global HK, severely dilated RV w HK
- CTA: no evidence of PE
- I/O's
- daily weights - trending down
- keep K>4, Mg>2
- PT/OT
- lasix
R pleural effusion
- thoracentesis
RLE nonhealing wound
- woundcare input appreciated
- compression
- diurese
Prediabetes
- HbA1c 6.4
- metformin
Hypomagnesemia
- replete
Normocytic anemia
- monitor
Hyperbilirubinemia
- monitor
Thrombocytopenia
- monitor
- PTT pending
Hypothyroidism
- TSH 5
- f/u outpt
Morbid obesity due to excess calories
- diet counselling
- consider outpt sleep apnea testing
HTN
- cont home losartan-hctz, metoprolol succinate
HLD
- cont home statin
- lipid panel wnl
GERD
- cont home omeprazole
Gout
- cont allopurinol
Diet: 2g sodium
DVT ppx: heparin gtt
Code status: FULL CODE
Anticipated Discharge: > 48 hours
Subjective/Interval History
-
Date of Service: September 12, 2024
No acute overnight events. Still dyspneic
Objective Data
-
Labs:
Laboratory Results
09/11/24 09/12/24 09/12/24
23:17 06:03 12:00
WBC 5.9
Hgb 12.1 L
Hct 38.4 L
Plt Count 93 L
APTT 113.3 H 97.9 H Pending
Sodium Pending
Potassium Pending
Chloride Pending
Carbon Dioxide Pending
BUN Pending
Creatinine Pending
Glucose Pending
Calcium Pending
Total Bilirubin Pending
AST Pending
ALT Pending
Alkaline Phosphatase Pending
Vital Signs:
Vital Signs
Temp Pulse Resp BP Pulse Ox
98.3 F 101 20 114/77 96
09/12/24 07:04 09/11/24 20:31 09/12/24 07:04 09/11/24 20:31 09/12/24 07:04
I&O
09/11/24 09/12/24 09/13/24
06:59 06:59 06:59
Intake Total 870 / 870 160 / 160
Output Total 800 / 800 1700 / 1700
Balance 70 / 70 -1540 / -1540
Review of Systems
-
History Source: Patient
Constitutional: Reports No Symptoms
Respiratory: Reports Trouble Breathing
Cardiac: Reports No Symptoms
Abdomen/GI: Reports No Symptoms
Musculoskeletal: Reports Edema
Neuro: Reports No Symptoms
Physical Exam
-
General: Well Developed, Well Nourished and Morbidly Obese
HEENT: Normocephalic, Atraumatic and Oxygen (2 L O2 via NC)
Respiratory: Clear to Auscultation and Accessory Resp Muscle Use
Cardiac: S1/S2 and Irregular Rhythm
GI: Soft, Nontender, Nondistended and Normal Bowel Sounds
Musculoskeletal: No Clubbing, No Cyanosis, Edema, Right Lower Extrem and Edema, Left Lower Extrem
Skin: Warm and Dry
Neuro: Awake, Alert and Oriented
Psych: Calm
[2024-09-12] MEDS: COZAAR 50 MG PO (09:05)
[2024-09-12] MEDS: ZYLOPRIM 100 MG PO (09:05)
[2024-09-12] MEDS: PROTONIX 40 MG PO (09:05)
[2024-09-12] MEDS: ALDACTONE 25 MG PO (09:05)
[2024-09-12] MEDS: HYDROPHOR 1 APPLIC TOPICAL (09:06)
[2024-09-12] MEDS: LASIX 40 MG IV ×2 (09:06→15:07)
[2024-09-12] MEDS: TOPROL XL 50 MG PO ×2 (09:06→20:31)
[2024-09-12] MEDS: LIPITOR 10 MG PO (09:18)
[2024-09-12 11:44] LABS: ALT (SGPT) 18 U/L (0-50); AST (SGOT) 23 U/L (17-59); Albumin 3.8 g/dl (3.5-5.0); Alkaline Phosphatase 105 U/L (38-126); Blood Urea Nitrogen 21 mg/dl (9-20); Calcium 9.2 mg/dl (8.4-10.2); Carbon Dioxide 33 mmol/L (22-30); Chloride 100 mmol/L (98-107); Estimated Creatinine Clearance 99 ml/min; Glucose 128 mg/dl (70-99); Magnesium 1.9 mg/dl (1.6-2.3); Potassium 3.9 mmol/L (3.5-5.1); Sodium 139 mmol/L (135-145); Total Bilirubin 1.4 mg/dl (0.2-1.3); Total Protein 6.5 g/dl (6.3-8.2); eGFR > 60.00
[2024-09-12 12:03] LABS: Body Fluid pH 7.51
--- NOTE | 2024-09-12 12:24 | CM ---
Reviewed chart. Met with Mr. Cantor to review discharge plans. We reviewed [facility] and he is agreeable to [facility]NA Services and has selected [facility]. [facility]. Referral Sent. Prior
to admission he resides with his spouse in a two story home with three steps to enter. He has a full flight of steps to get to bedroom/full bathroom. He has a powder room on the first floor. Prior to admission he was independent with ambulation and
adls. He does use a single point cane at home when needed. He has a single point cane at home. He has a prescription plan and uses [facility]. Medical work-up in progress. The discharge plan is to return home with his spouse [facility] when medically stable
[2024-09-12 12:28] LABS: Body Fluid Mononuclear 86 %; Body Fluid Polymorphonuclear 14 %; Body Fluid WBC 270 /CUMM
[2024-09-12 12:29] LABS: Body Fluid Second Tech ASW
[2024-09-12 12:42] LABS: Body Fluid Glucose 135 mg/dl; Body Fluid LDH 78 U/L
--- NOTE | 2024-09-12 13:50 | W.PN.CD ---
Today's Communication / Plan
-
Needs more diuresis prior to considering SHERICE/DCCV => could delay and give 21 days of Eliquis and go with outpatient DCCV w/o SHERICE
Add Farxiga
Add Eliquis
Leave metoprolol at current dose
Impression / Plan
-
Acute HFpEF:
-Echo 09/11/2024: report not in Expanse yet: Good LV/valves, RV dialted => CTA negative central PE
-BNP 2580, CXR with CHF pleural effusions => thoracentesis 09/11/2024
-single trop is normal, no clinical concern for acute ischemia
-IV LASIX 40 BID => diuresing, admit weight 149.8 kg on 09/10/2024 and now 09/12/2024 147.2 kg
-Added Aldactone
-Checking cost of ARNI/SGLT2-I/Eliquis => see below, will use Eliquis and Farxiga
-Rate control of AFib with PO metoprolol ER for now
-On outpatient ARB
-Will add Farxiga
-Once more diuresis is in place adjust more meds based on tolerance/affordability
-education
-Outpatient stress test reasonable
New AFib, persisting so far
- Rate: Better, on new metoprolol
- IV heparin now, checking cost of Eliquis
- Anticipate SHERICE/cardioversion, I doubt he will be ready for 09/12/2024
- [id number] at least 3 (HF, HTN, age1)
- Early ablation is appropriate but only after closer to euvolemia and preferably he loses caloric weight of 20-50 pounds (outpatient)
- [place] need education on anticoagulation and afib risk factor modification
- Outpt sleep study reasonable
HTN
Hyperlipidemia
Brand's esophagus => PPI
Colonic polyps, tubular adenomas
Morbid obesity, BMI 49.9 but he has a lot of fluid to remove with diuresis
Gout with flare
Hard of hearing, uses hearing aid
Subjective: Feeling better
Med cost per case managemt: So his first script for Aldenxiga for 90 days would be $851.57, after he meets his deductible he would pay 25% of the cost of the medications. Eliquis 5 mg po bid co-pay would be 25% of the cost of the medication-Approx.
$125.00 a month, Entresto 24/26 mg po bid co-pay would be 25% cost of the medications. All three medications would need a prior auth. The prior auth number is( [id number])
Physical Exam
Vital Signs/Labs
Vital Signs
Temp Pulse Resp BP Pulse Ox
97.6 F 86 20 116/80 97
09/12/24 12:11 09/12/24 11:45 09/12/24 12:11 09/12/24 11:45 09/12/24 12:11
09/11/24 09/12/24 09/13/24
06:59 06:59 06:59
Actual Weight 149 kg 147.2 kg
09/12/24 06:03
09/12/24 06:03
APTT 97.9 Sec (23.4-35.0) H 09/12/24 06:03
Magnesium 1.9 mg/dl (1.6-2.3) 09/12/24 06:03
Triglycerides 80 mg/dl (10-149) 09/11/24 02:09
LDL Cholesterol, Calc 58 mg/dl 09/11/24 02:09
VLDL Cholesterol, Calc 16 mg/dl (0-30) 09/11/24 02:09
HDL Cholesterol 64 mg/dl 09/11/24 02:09
Free T4 1.56 ng/dl (0.78-2.19) 09/10/24 12:48
09/10/24
11:30
Miu-P-Spcuxagzmkb Pept 2580
LAB Results
09/10/24
11:30
Troponin I < 0.012
Physical Exam
Constitutional: No acute distress
EENT: Anicteric
Cardiovascular: Rhythm/rate is irregular and Pedal edema present
Respiratory: Respiratory effort normal and Lungs clear to auscul.
GI: Soft
Neuro/Psych: AO x 3
Data Reviewed
-
Date of Service: September 12, 2024
[2024-09-12 15:27] LABS: APTT 36.5 Sec (23.4-35.0)
[2024-09-12] MEDS: GLUCOPHAGE 500 MG PO (16:56)
[2024-09-12 18:43] LABS: LDH 261 U/L (120-246)
[2024-09-12] MEDS: ELIQUIS 5 MG PO (20:31)
[2024-09-13 04:11] VITALS: BP 122/85
[2024-09-13 04:18] VITALS: BMI 48.5
--- NOTE | 2024-09-13 05:03 | PTCARENOTE ---
patient slept well overnight. controlled Afib on [id number]. bp stable. patient states feeling much better and breathing better. improved edema per patient. 96% on RA. wound care completed as ordered. oob independently. mild dyspnea on exertion
noted. med sheet on metoprolol given to patient per request.
[2024-09-13 05:06] LABS: Hemoglobin 12.3 g/dL (13.0-18.0); Mean Corp Hgb Conc. 31.5 g/dL (33.0-37.0); Mean Corpuscular Hgb 28.1 pg (27.0-31.0); Mean Platelet Volume 11.8 fL (7.4-10.4); Platelet Count 107 10^3/uL (130-400); Red Blood Cell Count 4.38 10^6/uL (4.70-6.10); Red Cell Dist. Width 16.8 % (11.5-14.5); White Blood Cell Count 5.7 10^3/uL (4.8-10.8)
[2024-09-13 05:33] LABS: ALT (SGPT) 18 U/L (0-50); AST (SGOT) 23 U/L (17-59); Albumin 3.8 g/dl (3.5-5.0); Alkaline Phosphatase 103 U/L (38-126); Blood Urea Nitrogen 22 mg/dl (9-20); Calcium 9.3 mg/dl (8.4-10.2); Carbon Dioxide 38 mmol/L (22-30); Chloride 98 mmol/L (98-107); Estimated Creatinine Clearance 89 ml/min; Glucose 113 mg/dl (70-99); Magnesium 1.8 mg/dl (1.6-2.3); Potassium 4.7 mmol/L (3.5-5.1); Sodium 142 mmol/L (135-145); Total Bilirubin 1.4 mg/dl (0.2-1.3); Total Protein 6.4 g/dl (6.3-8.2); eGFR > 60.00
[2024-09-13 07:28] VITALS: BP 121/87
--- NOTE | 2024-09-13 07:41 | W.PN.HOSP.TC ---
Today's Communication/Plan
-
- cont diuresis
Assessment / Plan
Assessment / Plan
IMPRESSION:
Pt is a 68yo M pmh HTN, HLD, GERD, gout presenting for dyspnea w orthopnea. Pt reports his abdomen and leg are becoming swollen. Found to be in afib w RVR w pulmonary edema. Was on heparin gtt and cardizem gtt.
PLAN:
New onset Afib with RVR
- [id number] - 3
- heparin gtt, cardizem gtt stopped
- appreciate cardiology input - SHERICE/cardioversion when euvolemic, outpt stress test
Acute hypoxic respiratory failure secondary to new onset HFpEF (EF 50%)
- CXR: Cardiomegaly and mild CHF with small right pleural effusion
- echo 09/11: LVEF 50%, global HK, severely dilated RV w HK
- CTA: no evidence of PE
- I/O's
- daily weights - trending down
- keep K>4, Mg>2
- PT/OT
- lasix, farxiga, eliquis
R pleural effusion
- thoracentesis - drained 1400 cc clear yellow pleural fluid -- transudative
RLE nonhealing wound
- woundcare input appreciated
- compression
- diurese
Prediabetes
- HbA1c 6.4
- metformin
Hypomagnesemia
- replete
Normocytic anemia
- monitor
Hyperbilirubinemia
- monitor
Thrombocytopenia
- monitor
- PTT pending
Hypothyroidism
- TSH 5
- f/u outpt
Morbid obesity due to excess calories
- diet counselling
- consider outpt sleep apnea testing
HTN
- cont home losartan-hctz, metoprolol succinate
HLD
- cont home statin
- lipid panel wnl
GERD
- cont home omeprazole
Gout
- cont allopurinol
Diet: 2g sodium
DVT ppx: eliquis
Code status: FULL CODE
Anticipated Discharge: > 48 hours
Subjective/Interval History
-
Date of Service: September 13, 2024
Thoracentesis yesterday, drained 1400cc clear yellow pleural fluid. Tolerated procedure well. Pt able to breathe much better now, endorses a slight cough.
Objective Data
-
Labs:
Laboratory Results
09/13/24
04:19
WBC 5.7
Hgb 12.3 L
Hct 39.0
Plt Count 107 L
Sodium 142
Potassium 4.7
Chloride 98
Carbon Dioxide 38 H
BUN 22 H
Creatinine 1.1
Glucose 113 H
Calcium 9.3
Total Bilirubin 1.4 H
AST 23
ALT 18
Alkaline Phosphatase 103
Vital Signs:
Vital Signs
Temp Pulse Resp BP Pulse Ox
98.1 F 94 16 122/85 92
09/13/24 07:26 09/13/24 05:00 09/13/24 07:26 09/13/24 04:11 09/13/24 07:26
I&O
09/12/24 09/13/24 09/14/24
06:59 06:59 06:59
Intake Total 160 / 160 250 / 250
Output Total 1700 / 1700 2074 / 2074
Balance -1540 / -1540 -1825 / -1825
Review of Systems
-
History Source: Patient
Constitutional: Reports No Symptoms
Respiratory: Reports Cough
Cardiac: Reports No Symptoms
Abdomen/GI: Reports No Symptoms
Musculoskeletal: Reports No Symptoms
Neuro: Reports No Symptoms
Physical Exam
-
General: Well Developed, Well Nourished and Morbidly Obese
HEENT: Normocephalic and Atraumatic
Respiratory: Clear to Auscultation and Non Labored Respirations
Cardiac: S1/S2 and Irregular Rhythm
GI: Soft, Nontender, Nondistended and Normal Bowel Sounds
Musculoskeletal: Edema, Right Lower Extrem and Edema, Left Lower Extrem
Neuro: Awake, Alert and Oriented
Psych: Calm
[2024-09-13] MEDS: ELIQUIS 5 MG PO ×2 (09:12→20:36)
[2024-09-13 09:13] VITALS: BP 120/79
[2024-09-13] MEDS: HYDROPHOR 1 APPLIC TOPICAL (09:13)
[2024-09-13] MEDS: LIPITOR 10 MG PO (09:13)
[2024-09-13] MEDS: PROTONIX 40 MG PO (09:13)
[2024-09-13] MEDS: ALDACTONE 25 MG PO (09:13)
[2024-09-13] MEDS: ZYLOPRIM 100 MG PO (09:14)
[2024-09-13] MEDS: COZAAR 50 MG PO (09:14)
[2024-09-13] MEDS: GLUCOPHAGE 500 MG PO ×2 (09:14→17:10)
[2024-09-13] MEDS: FARXIGA 10 MG PO (09:14)
[2024-09-13] MEDS: TOPROL XL 50 MG PO (09:14)
[2024-09-13] MEDS: LASIX 40 MG IV ×2 (09:15→17:10)
[2024-09-13 13:09] VITALS: BP 114/80
--- NOTE | 2024-09-13 14:32 | W.PN.CD ---
Today's Communication / Plan
-
IV diuresis
SHERICE/cardioversion Monday
watch contracture alkalosis
Impression / Plan
-
Outpatient woodwork teacher will be: Missy Avila MD
Acute HFpEF:
- Diuresing, weight 149.8 kg on 09/10/2024 and now 09/13/2024 144.6 kg
- Meds: IV Lasix, Aldactone, ARB. He feels he cannot afford Farxiga => I stopped it
- Controlling AFib will help heart failure
- Outpatient stress test reasonable
Contracture alkalosis
- May need to decrease to daily Lasix or perhaps add a few doses of Diamox
- Wach daily
New AFib, persisting so far
- Rate: Better, but not optimal on new metoprolol 50 BID => move to 75 bid (hold AM dose on Monday for cardioversion
- He is OK paying for Eliquis
- Anticipate SHERICE/cardioversion, 09/16/2024...but high risk for recurrence and if so i would favor ablation when BMI closer to 40
- [id number] at least 3 (HF, HTN, age1)
- Early ablation is appropriate but only after closer to euvolemia and preferably when BMI closer to 40
- Education about anticoagulation and afib risk factor modification is underway
- Outpt sleep study reasonable
HTN
Hyperlipidemia
Brand's esophagus => PPI
Colonic polyps, tubular adenomas
Morbid obesity, BMI 49.9 but he has a lot of fluid to remove with diuresis
Gout with flare
Hard of hearing, uses hearing aid
Subjective: Feeling better
Med cost per case management: So his first script for Farxiga for 90 days would be $851.57, after he meets his deductible he would pay 25% of the cost of the medications. Eliquis 5 mg po bid co-pay would be 25% of the cost of the
medication-Approx. $125.00 a month, Starro 24/26 mg po bid co-pay would be 25% cost of the medications. All three medications would need a prior auth. The prior auth number is( [id number])
Echo 09/11/2024:
Mildly reduced left ventricular systolic function. Left ventricular ejection
fraction is 50% by Sheffield's method of discs.
Severely enlarged right ventricular size with depressed systolic function.
Mild to moderate mitral regurgitation.
Mild pulmonary hypertension.
Physical Exam
Vital Signs/Labs
Vital Signs
Temp Pulse Resp BP Pulse Ox
97.6 F 109 18 120/79 95
09/13/24 13:11 09/13/24 10:00 09/13/24 13:11 09/13/24 09:14 09/13/24 13:11
09/12/24 09/13/24 09/14/24
06:59 06:59 06:59
Actual Weight 147.2 kg 144.6 kg
09/13/24 04:19
09/13/24 04:19
APTT 36.5 Sec (23.4-35.0) H 09/12/24 12:22
Magnesium 1.8 mg/dl (1.6-2.3) 09/13/24 04:19
Triglycerides 80 mg/dl (10-149) 09/11/24 02:09
LDL Cholesterol, Calc 58 mg/dl 09/11/24 02:09
VLDL Cholesterol, Calc 16 mg/dl (0-30) 09/11/24 02:09
HDL Cholesterol 64 mg/dl 09/11/24 02:09
Free T4 1.56 ng/dl (0.78-2.19) 09/10/24 12:48
09/10/24
11:30
Ont-U-Zanwypkdkrl Pept 2580
Physical Exam
Constitutional: No acute distress
EENT: Anicteric
Cardiovascular: Rhythm/rate is irregular and S1S2 is normal
Respiratory: Respiratory effort normal and Crackles Present (at bases)
GI: Soft and Distention absent
Neuro/Psych: AO x 3
Data Reviewed
-
Date of Service: September 13, 2024
--- NOTE | 2024-09-13 15:41 | CM ---
Reviewed chart. Met with Mr. Cantor to review discharge plans. He states he is feeling better. [facility] He is agreeable to [facility]. Prior to admission he resides with his spouse in a two story
home with three steps to enter. He states he has a full flight of steps to get to bedroom/full bathroom. He has a powder room on the first floor. He sometimes uses a single point cane. He has a single point cane at home. He has a prescription
plan. Medical work-up in progress. The discharge plan is to return home with his spouse [facility] when medically stable.
--- NOTE | 2024-09-13 18:28 | PTCARENOTE ---
pt continues to be afib on the monitor, hr in the 120s, vss. when pt ambulates in neves and room hr in the 140s. pt offers no complaints at this time. pt educated on plan of care and pt verbalized understanding. call tapia within reach.
[2024-09-13 19:19] VITALS: BP 103/70
[2024-09-13] MEDS: TOPROL XL 75 MG PO (20:36)
[2024-09-13 22:09] VITALS: BP 108/55
--- NOTE | 2024-09-14 00:19 | PTCARENOTE ---
Pt rec'd at change of shift sitting on side of bed. Voiding well post Lasix dose given on day shift; accurate I&O. Afib on telemetry. Lungs diminished in bases. harsh cough noted.
[2024-09-14 02:49] VITALS: BP 123/90
[2024-09-14] MEDS: INDOCIN 50 MG PO (02:50)
[2024-09-14 02:56] VITALS: BMI 47.2
--- NOTE | 2024-09-14 03:17 | PTCARENOTE ---
Pt oob to recliner chair. medicated with Indocin for c/o b/l knee pain. wt down 9 lbs. Pt states left leg feels back to baseline
[2024-09-14 03:31] LABS: Hemoglobin 12.6 g/dL (13.0-18.0); Mean Corp Hgb Conc. 33.2 g/dL (33.0-37.0); Mean Corpuscular Hgb 28.4 pg (27.0-31.0); Mean Corpuscular Volume 85.6 fL (80.0-94.0); Mean Platelet Volume 11.1 fL (7.4-10.4); Platelet Count 125 10^3/uL (130-400); Red Blood Cell Count 4.44 10^6/uL (4.70-6.10); White Blood Cell Count 5.3 10^3/uL (4.8-10.8)
[2024-09-14 03:58] LABS: ALT (SGPT) 18 U/L (0-50); AST (SGOT) 23 U/L (17-59); Albumin 3.6 g/dl (3.5-5.0); Alkaline Phosphatase 98 U/L (38-126); Blood Urea Nitrogen 20 mg/dl (9-20); Calcium 9.2 mg/dl (8.4-10.2); Carbon Dioxide 37 mmol/L (22-30); Chloride 97 mmol/L (98-107); Estimated Creatinine Clearance 96 ml/min; Glucose 110 mg/dl (70-99); Magnesium 1.5 mg/dl (1.6-2.3); Potassium 3.5 mmol/L (3.5-5.1); Sodium 141 mmol/L (135-145); Total Bilirubin 1.6 mg/dl (0.2-1.3); Total Protein 6.4 g/dl (6.3-8.2); eGFR > 60.00
[2024-09-14 08:02] VITALS: BP 123/80
[2024-09-14] MEDS: LIPITOR 10 MG PO (09:24)
[2024-09-14] MEDS: ALDACTONE 25 MG PO (09:24)
[2024-09-14] MEDS: TOPROL XL 75 MG PO ×2 (09:24→19:50)
[2024-09-14] MEDS: ZYLOPRIM 100 MG PO (09:24)
[2024-09-14] MEDS: PROTONIX 40 MG PO (09:24)
[2024-09-14] MEDS: GLUCOPHAGE 500 MG PO ×2 (09:25→17:05)
[2024-09-14] MEDS: ELIQUIS 5 MG PO ×2 (09:25→19:50)
[2024-09-14] MEDS: COZAAR 50 MG PO (09:25)
[2024-09-14] MEDS: LASIX 40 MG IV ×2 (09:25→17:05)
[2024-09-14] MEDS: HYDROPHOR 1 APPLIC TOPICAL (09:28)
[2024-09-14] MEDS: MAGNESIUM SULFATE 50 IV (09:29)
--- NOTE | 2024-09-14 11:55 | W.PN.CD ---
Addendum entered and electronically signed by Chichi Avila MD 09/14/24 15:27:
I saw and examined the patient.
The PIGMENT PROCESSOR's note was reviewed and I agree with the note.
Comment: He is doing better. Breathing improving. lungs cta, irreg irreg 2+ pitting in the le. Continue diuresis, npo zoltan azar monday for tiago/dccv on Monday.
Original Note:
Today's Communication / Plan
-
plan for TIAGO/CV 09/16/24, continue Eliquis.
continue diuresis.
Impression / Plan
-
Outpatient dimension warehouse supervisor will be: Missy Avila MD
Acute HFpEF:
- Diuresing well, continue. weight down 8 lbs overnight
- Meds: IV Lasix, Aldactone, ARB. He feels he cannot afford Farxiga so its stopped
- Controlling AFib will help heart failure
- Outpatient stress test reasonable
New AFib, persisting so far
- Rate: Better, but not optimal, on new metoprolol 75 bid (hold AM dose on Monday for cardioversion)
- He is OK paying for Eliquis
- Anticipate TIAGO/cardioversion, 09/16/2024...but high risk for recurrence and if recurs, Dr. Gomez favors ablation when BMI closer to 40
- [id number] at least 3 (HF, HTN, age1)
- Early ablation is appropriate but only after closer to euvolemia and preferably when BMI closer to 40
- Education about anticoagulation and afib risk factor modification is underway
- Outpt sleep study reasonable
HTN
Hyperlipidemia
Brand's esophagus => PPI
Colonic polyps, tubular adenomas
Morbid obesity, BMI 49.9 but he has a lot of fluid to remove with diuresis
Gout with flare
Hard of hearing, uses hearing aid
Subjective:
feels better, anxious to have TIAGO/CV then go home.
Med cost per case management: So his first script for Bashir for 90 days would be $851.57, after he meets his deductible he would pay 25% of the cost of the medications. Eliquis 5 mg po bid co-pay would be 25% of the cost of the
medication-Approx. $125.00 a month, Entresto 24/26 mg po bid co-pay would be 25% cost of the medications. All three medications would need a prior auth. The prior auth number is( [id number])
Echo 09/11/2024:
Mildly reduced left ventricular systolic function. Left ventricular ejection
fraction is 50% by Sheffield's method of discs.
Severely enlarged right ventricular size with depressed systolic function.
Mild to moderate mitral regurgitation.
Mild pulmonary hypertension.
Physical Exam
Vital Signs/Labs
Vital Signs
Temp Pulse Resp BP Pulse Ox
97.5 F 95 18 123/80 94
09/14/24 08:07 09/14/24 08:02 09/14/24 08:07 09/14/24 08:02 09/14/24 08:07
09/13/24 09/14/24 09/15/24
06:59 06:59 06:59
Actual Weight 318 lb 12.615 oz 310 lb 6.574 oz
09/14/24 03:11
09/14/24 03:11
APTT 36.5 Sec (23.4-35.0) H 09/12/24 12:22
Magnesium 1.5 mg/dl (1.6-2.3) L 09/14/24 03:11
Triglycerides 80 mg/dl (10-149) 09/11/24 02:09
LDL Cholesterol, Calc 58 mg/dl 09/11/24 02:09
VLDL Cholesterol, Calc 16 mg/dl (0-30) 09/11/24 02:09
HDL Cholesterol 64 mg/dl 09/11/24 02:09
Free T4 1.56 ng/dl (0.78-2.19) 09/10/24 12:48
09/10/24
11:30
Wei-L-Yzwiwyirryt Pept 2580
Physical Exam
Constitutional: No acute distress, Comfortable and Other (morbidly obese)
EENT: Anicteric and Moist mucous membranes
Cardiovascular: Rhythm/rate is irregular and Pedal edema present (mild/mod b/l LE)
Respiratory: Respiratory effort normal and Other (diminished b/l bases)
GI: Soft, Non tender and Normal bowel sounds
Neuro/Psych: AO x 3
Other: Skin (warm, dry )
Data Reviewed
-
Date of Service: September 14, 2024
Medical Decision Making: Reviewed Test Results
EKG: Tracing Personally Visualized and interpreted
Echo: Report Reviewed by me
Labs: Labs Reviewed by me
--- NOTE | 2024-09-14 13:13 | W.PN.HOSP.TC ---
Today's Communication/Plan
-
Diuretics per cardiology
For SHERICE/cardioversion on Monday
Assessment / Plan
Assessment / Plan
New onset Afib with RVR and new onset HFpEF CHF exacerbation (echo with EF 50% with hypokinesis)--apprec cards- started on elliquis by cards--troponin neg--concern for PE based on dilated and hypokinetic RV although CT chest reported negative.
Patient is planned to go undergo SHERICE/cardioversion on Monday
Acute hypoxic respiratory failure/acute on chronic diastolic congestive heart failure--improved . multifactorial due to Pulmonary edema likely from new onset CHF and pleural effusions related - off of o2 at this point. Maintained on diuretic
therapy per cardiology.
Right pleural effusion -s/p thoracentesis of 1.4L yellow pleural fluid. Fluid WBC 270, 86% mononuclear. Glucose 135/LDH 78. Fluid is transudative in nature. Cyto-pathology pending.
RLE nonhealing wound (POA)--likely due to edema/ venous stasis dermatitis.
Pre-diabetes--no history of DM-- HGB A1C 6.4-discussed diabetes pathophysiology, patient is motivated to actually lose weight and has done so in the past. Weight identity access management architect visit Dr. Schwartz's number provided
Hypo-magnesemia--likely from ETOH intake--replete
Hyper-bilirubinemia- monitor
Thrombocytopenia--?etiology--ETOH, other--follow for now
Hypothyroidism-- TSH 5- f/u outpt
Morbid obesity due to excess calories--affects all aspects of care- diet counselling-- consider outpt sleep apnea testing
Essential HTN--cont home losartan-hctz, metoprolol succinate
HLD-- continue home statin
GERD-- cont home omeprazole
Gout- cont allopurinol
DVT proph-- eliquis
Code status--FULL CODE
Detailed discussion regarding patient heart failure and recommended medication of GDMT. Patient [facility] co-pay is significantly high ~ 800/month and not financially possible to continue at this stage. Patient is planning to continue on Eliquis.
Discussed with cardiology wants to continue volume optimizing patient over the weekend.
Anticipated Discharge: 24 - 48 hours
Subjective/Interval History
-
Date of Service: September 14, 2024
Continues to have good diuretic response
No hypoxia overnight
Dyspnea continues to get better
Objective Data
-
Labs:
Laboratory Results
09/14/24
03:11
WBC 5.3
Hgb 12.6 L
Hct 38.0 L
Plt Count 125 L
Sodium 141
Potassium 3.5 D
Chloride 97 L
Carbon Dioxide 37 H
BUN 20
Creatinine 1.0
Glucose 110 H
Calcium 9.2
Total Bilirubin 1.6 H
AST 23
ALT 18
Alkaline Phosphatase 98
Vital Signs:
Vital Signs
Temp Pulse Resp BP Pulse Ox
97.5 F 95 18 123/80 94
09/14/24 08:07 09/14/24 08:02 09/14/24 08:07 09/14/24 08:02 09/14/24 08:07
I&O
09/13/24 09/14/24 09/15/24
06:59 06:59 06:59
Intake Total 250 / 250 480 / 480
Output Total 2074 2800 / 2800 1350 / 1350
Balance -1825 / -1825 -2320 / -2320 -1350 / -1350
Review of Systems
-
EENT: Reports No Symptoms Reported
Respiratory: Reports No Symptoms
Cardiac: Reports No Symptoms
Physical Exam
-
General: Comfortable and Morbidly Obese
HEENT: Negative Oxygen
Respiratory: Clear to Auscultation
Cardiac: Regular Rhythm and S1/S2; Negative Murmur or Rub
GI: Soft, Nontender and Nondistended
Musculoskeletal: Edema, Right Lower Extrem and Edema, Left Lower Extrem
Neuro: Awake, Alert, Oriented, No Motor Deficits and Nonfocal/Grossly Intact
Psych: Calm
[2024-09-14 15:25] VITALS: BP 122/79
[2024-09-14 19:47] VITALS: BP 115/76
--- NOTE | 2024-09-14 21:41 | PTCARENOTE ---
Assumed care on pt at change of shift, aaox3, resting in bed with no c/o pain or SOB. Pt remains Afib on the monitor with HR 100's. Using urinal at bedside, clear yellow urine, good output. VSS. Call tapia within reach, POC ongoing.
[2024-09-14 22:45] VITALS: BP 126/86
--- NOTE | 2024-09-14 22:57 | PTCARENOTE ---
2L O2 via NC applied at bedtime, Pox 94%. O2 sat 88-90% RA while asleep.
[2024-09-15] VITALS (8 sets, daily range): BP systolic 105–125; BP diastolic 66–87; BMI 46.1
[2024-09-15] MEDS: INDOCIN 50 MG PO ×2 (04:53→22:18)
[2024-09-15 04:59] LABS: Hematocrit 37.9 % (39.0-52.0); Hemoglobin 12.3 g/dL (13.0-18.0); Mean Corp Hgb Conc. 32.5 g/dL (33.0-37.0); Mean Corpuscular Hgb 28.5 pg (27.0-31.0); Mean Corpuscular Volume 87.7 fL (80.0-94.0); Mean Platelet Volume 11.7 fL (7.4-10.4); Platelet Count 113 10^3/uL (130-400); Red Blood Cell Count 4.32 10^6/uL (4.70-6.10); Red Cell Dist. Width 16.9 % (11.5-14.5); White Blood Cell Count 5.2 10^3/uL (4.8-10.8)
[2024-09-15 05:11] LABS: AST (SGOT) 23 U/L (17-59); Albumin 3.5 g/dl (3.5-5.0); Alkaline Phosphatase 88 U/L (38-126); Blood Urea Nitrogen 21 mg/dl (9-20); Chloride 96 mmol/L (98-107); Estimated Creatinine Clearance 95 ml/min; Glucose 111 mg/dl (70-99); Magnesium 1.6 mg/dl (1.6-2.3); Total Bilirubin 1.4 mg/dl (0.2-1.3); Total Protein 6.2 g/dl (6.3-8.2); eGFR > 60.00
[2024-09-15 05:21] LABS: ALT (SGPT) 18 U/L (0-50); Calcium 8.9 mg/dl (8.4-10.2); Carbon Dioxide 36 mmol/L (22-30); Potassium 3.3 mmol/L (3.5-5.1); Sodium 141 mmol/L (135-145)
[2024-09-15] MEDS: MAGNESIUM SULFATE 50 IV (07:55)
[2024-09-15] MEDS: GLUCOPHAGE 500 MG PO ×2 (07:55→16:35)
[2024-09-15] MEDS: ALDACTONE 25 MG PO (07:55)
[2024-09-15] MEDS: COZAAR 50 MG PO (07:56)
[2024-09-15] MEDS: PROTONIX 40 MG PO (07:57)
[2024-09-15] MEDS: LIPITOR 10 MG PO (07:57)
[2024-09-15] MEDS: KCL 40 MEQ PO (07:57)
[2024-09-15] MEDS: ELIQUIS 5 MG PO ×2 (07:57→19:59)
[2024-09-15] MEDS: TOPROL XL 75 MG PO ×2 (07:57→19:59)
[2024-09-15] MEDS: ZYLOPRIM 100 MG PO (07:59)
[2024-09-15] MEDS: HYDROPHOR 1 APPLIC TOPICAL (07:59)
[2024-09-15] MEDS: LASIX 40 MG IV ×2 (10:28→16:34)
--- NOTE | 2024-09-15 11:44 | W.PN.CD ---
Today's Communication / Plan
-
npo zoltan azar for tiago/dccv
continue iv diuresis with intensive monitoring of lytes and vs
Impression / Plan
-
Outpatient medical operations supervisor will be: Missy Avila MD
Acute HFpEF:
- Diuresing well, continue.
- Meds: IV Lasix, Aldactone, ARB. He feels he cannot afford Farxiga so its stopped
- Controlling AFib will help heart failure
- Outpatient stress test reasonable
New AFib, persisting so far
- Rate: Better, but not optimal, on new metoprolol 75 bid (hold AM dose on Monday for cardioversion)
- He is OK paying for Eliquis
- Anticipate TIAGO/cardioversion, 09/16/2024...but high risk for recurrence and if recurs, Dr. Gomez favors ablation when BMI closer to 40
- [id number] at least 3 (HF, HTN, age1)
- Early ablation is appropriate but only after closer to euvolemia and preferably when BMI closer to 40
- Education about anticoagulation and afib risk factor modification is underway
- Outpt sleep study reasonable
HTN
Hyperlipidemia
Brand's esophagus => PPI
Colonic polyps, tubular adenomas
Morbid obesity, BMI 49.9 but he has a lot of fluid to remove with diuresis
Gout with flare
Hard of hearing, uses hearing aid
Subjective:
feelsgood, anxious to have TIAGO/CV then go home.
Med cost per case management: So his first script for Farxiga for 90 days would be $851.57, after he meets his deductible he would pay 25% of the cost of the medications. Eliquis 5 mg po bid co-pay would be 25% of the cost of the
medication-Approx. $125.00 a month, Entresto 24/26 mg po bid co-pay would be 25% cost of the medications. All three medications would need a prior auth. The prior auth number is( [id number])
Echo 09/11/2024:
Mildly reduced left ventricular systolic function. Left ventricular ejection
fraction is 50% by Sheffield's method of discs.
Severely enlarged right ventricular size with depressed systolic function.
Mild to moderate mitral regurgitation.
Mild pulmonary hypertension.
Physical Exam
Vital Signs/Labs
Vital Signs
Temp Pulse Resp BP Pulse Ox
97.6 F 97 20 125/82 93
09/15/24 11:26 09/15/24 07:41 09/15/24 11:26 09/15/24 07:41 09/15/24 11:26
09/14/24 09/15/24 09/16/24
06:59 06:59 06:59
Actual Weight 310 lb 6.574 oz 303 lb 2.17 oz
09/15/24 04:22
09/15/24 04:22
APTT 36.5 Sec (23.4-35.0) H 09/12/24 12:22
Magnesium 1.6 mg/dl (1.6-2.3) 09/15/24 04:22
Triglycerides 80 mg/dl (10-149) 09/11/24 02:09
LDL Cholesterol, Calc 58 mg/dl 09/11/24 02:09
VLDL Cholesterol, Calc 16 mg/dl (0-30) 09/11/24 02:09
HDL Cholesterol 64 mg/dl 09/11/24 02:09
Free T4 1.56 ng/dl (0.78-2.19) 09/10/24 12:48
09/10/24
11:30
Nca-H-Auedoullvai Pept 2580
Physical Exam
Cardiovascular: Rhythm/rate is irregular, Pedal edema present (1+ b/l ) and S1S2 is normal
Respiratory: Respiratory effort normal, Lungs clear to auscul., Wheeze Absent and Crackles Absent
Neuro/Psych: AO x 3
Data Reviewed
-
Date of Service: September 15, 2024
Medical Decision Making: Review of Case with other Provider (dr raudel ordoñez/haydev tomorrow d/c planning)
EKG: Other (fib with pvcs)
--- NOTE | 2024-09-15 15:32 | W.PN.HOSP.TC ---
Today's Communication/Plan
-
for CV tomorrow
diuretics per cards
Assessment / Plan
Assessment / Plan
New onset Afib with RVR and new onset HFpEF CHF exacerbation (echo with EF 50% with hypokinesis)--apprec cards- started on elliquis by cards--troponin neg--concern for PE based on dilated and hypokinetic RV although CT chest reported negative.
Patient is planned to go undergo SHERICE/cardioversion on Monday
Acute hypoxic respiratory failure/acute on chronic diastolic congestive heart failure--improved . multifactorial due to Pulmonary edema likely from new onset CHF and pleural effusions related - off of o2 at this point. Maintained on diuretic
therapy per cardiology.
Right pleural effusion -s/p thoracentesis of 1.4L yellow pleural fluid. Fluid WBC 270, 86% mononuclear. Glucose 135/LDH 78. Fluid is transudative in nature. Cyto-pathology pending.
RLE nonhealing wound (POA)--likely due to edema/ venous stasis dermatitis.
Pre-diabetes--no history of DM-- HGB A1C 6.4-discussed diabetes pathophysiology, patient is motivated to actually lose weight and has done so in the past. Weight management advisor visit Dr. Schwartz's number provided
Hypo-magnesemia--likely from ETOH intake--replete
Hyper-bilirubinemia- monitor
Thrombocytopenia--?etiology--ETOH, other--follow for now
Hypothyroidism-- TSH 5- f/u outpt
Morbid obesity due to excess calories--affects all aspects of care- diet counselling-- consider outpt sleep apnea testing
Essential HTN--cont home losartan-hctz, metoprolol succinate
HLD-- continue home statin
GERD-- cont home omeprazole
Gout- cont allopurinol
DVT proph-- eliquis
Code status--FULL CODE
Detailed discussion regarding patient heart failure and recommended medication of GDMT. Patient [facility] co-pay is significantly high ~ 800/month and not financially possible to continue at this stage. Patient is planning to continue on Eliquis.
Discussed with cardiology wants to continue volume optimizing patient over the weekend.
Anticipated Discharge: Within 24 hours
Subjective/Interval History
-
Date of Service: September 15, 2024
Resting comfortably in chair
No issues overnight
Objective Data
-
Labs:
Laboratory Results
09/15/24
04:22
WBC 5.2
Hgb 12.3 L
Hct 37.9 L
Plt Count 113 L
Sodium 141
Potassium 3.3 L
Chloride 96 L
Carbon Dioxide 36 H
BUN 21 H
Creatinine 1.0
Glucose 111 H
Calcium 8.9
Total Bilirubin 1.4 H
AST 23
ALT 18
Alkaline Phosphatase 88
Vital Signs:
Vital Signs
Temp Pulse Resp BP Pulse Ox
97.6 F 110 20 109/87 93
09/15/24 11:26 09/15/24 12:00 09/15/24 11:26 09/15/24 11:26 09/15/24 11:26
I&O
09/14/24 09/15/24 09/16/24
06:59 06:59 06:59
Intake Total 480 / 480 240 / 240
Output Total 2800 / 2800 2650 / 2650 400 / 400
Balance -2320 / -2320 -2410 / -2410 -400 / -400
Review of Systems
-
Respiratory: Reports No Symptoms
Cardiac: Reports No Symptoms
Abdomen/GI: Reports No Symptoms
Physical Exam
-
General: Comfortable and Morbidly Obese
HEENT: Negative Oxygen
Respiratory: Clear to Auscultation
Cardiac: Regular Rhythm and S1/S2; Negative Murmur or Rub
GI: Soft, Nontender and Nondistended
Musculoskeletal: Edema, Right Lower Extrem and Edema, Left Lower Extrem
Neuro: Awake, Alert, Oriented, No Motor Deficits and Nonfocal/Grossly Intact
Psych: Calm
[2024-09-16] VITALS (10 sets, daily range): BP systolic 105–138; BP diastolic 73–97; PULSE 100–125; O2SAT 91; BMI 45.5
[2024-09-16 05:08] LABS: Hematocrit 39.9 % (39.0-52.0); Hemoglobin 13.1 g/dL (13.0-18.0); Mean Corp Hgb Conc. 32.8 g/dL (33.0-37.0); Mean Corpuscular Volume 88.3 fL (80.0-94.0); Mean Platelet Volume 10.9 fL (7.4-10.4); Platelet Count 114 10^3/uL (130-400); Red Blood Cell Count 4.52 10^6/uL (4.70-6.10); Red Cell Dist. Width 16.8 % (11.5-14.5); White Blood Cell Count 5.5 10^3/uL (4.8-10.8)
[2024-09-16 05:23] LABS: ALT (SGPT) 19 U/L (0-50); AST (SGOT) 25 U/L (17-59); Albumin 3.7 g/dl (3.5-5.0); Alkaline Phosphatase 95 U/L (38-126); Blood Urea Nitrogen 27 mg/dl (9-20); Calcium 9.1 mg/dl (8.4-10.2); Chloride 96 mmol/L (98-107); Estimated Creatinine Clearance 86 ml/min; Glucose 119 mg/dl (70-99); Magnesium 1.8 mg/dl (1.6-2.3); Potassium 3.8 mmol/L (3.5-5.1); Sodium 141 mmol/L (135-145); Total Bilirubin 1.6 mg/dl (0.2-1.3); Total Protein 5.9 g/dl (6.3-8.2); eGFR > 60.00
[2024-09-16 05:33] LABS: Carbon Dioxide 41 mmol/L (22-30)
--- NOTE | 2024-09-16 07:02 | PTCARENOTE ---
wound care completed. NPO since midnight.
[2024-09-16] MEDS: ELIQUIS 5 MG PO ×2 (07:33→20:00)
--- NOTE | 2024-09-16 09:10 | W.PN.CD ---
Today's Communication / Plan
-
Increase Metoprolol to 100mg BID
Initiate Dofetilide
Switch to PO Lasix
Impression / Plan
-
Outpatient used car salesperson will be: Missy Avila MD
Acute HFpEF:
- Suspect he is approaching euvolemic. BUN and Cr up slightly.
- Switch to PO Lasix 40mg BID
- Meds: Aldactone, ARB. He feels he cannot afford Farxiga so its stopped
- Controlling AFib will help heart failure
- Outpatient stress test reasonable
New AFib, persisting so far
- Attempted SHERICE/DCCV 09/16. No CONI thrombus but DCCV unsuccessful despite 4 shocks
- Initiate dofetilide. Start with 500 mcg BID. QTc 459 ms by [place] formula on 09/16 8:33 ECG
- Potential repeat DCCV attempt prior to discharge (09/19) if not in NSR
- Rate: Better, but not optimal, increase Metoprolol to 100mg BID
- He is OK paying for Eliquis
- [id number] at least 3 (HF, HTN, age1)
- Early ablation is appropriate but only after closer to euvolemia and preferably when BMI closer to 40
- Education about anticoagulation and afib risk factor modification is underway
- Outpt sleep study reasonable
HTN
Hyperlipidemia
Brand's esophagus => PPI
Colonic polyps, tubular adenomas
Morbid obesity, BMI 49.9 but he has a lot of fluid to remove with diuresis
Gout with flare
Hard of hearing, uses hearing aid
Subjective:
feels improved compared to admission. has been up and walking around without SOB.
Med cost per case management: So his first script for Farxiga for 90 days would be $851.57, after he meets his deductible he would pay 25% of the cost of the medications. Eliquis 5 mg po bid co-pay would be 25% of the cost of the
medication-Approx. $125.00 a month, Entresto 24/26 mg po bid co-pay would be 25% cost of the medications. All three medications would need a prior auth. The prior auth number is( [id number])
Echo 09/11/2024:
Mildly reduced left ventricular systolic function. Left ventricular ejection
fraction is 50% by Sheffield's method of discs.
Severely enlarged right ventricular size with depressed systolic function.
Mild to moderate mitral regurgitation.
Mild pulmonary hypertension.
Physical Exam
Vital Signs/Labs
Vital Signs
Temp Pulse Resp BP Pulse Ox
97.8 F 93 20 125/92 92
09/16/24 07:05 09/16/24 07:04 09/16/24 07:05 09/16/24 07:04 09/16/24 07:05
09/15/24 09/16/24 09/17/24
06:59 06:59 06:59
Actual Weight 303 lb 2.17 oz 299 lb 2.676 oz
09/16/24 04:43
09/16/24 04:43
APTT 36.5 Sec (23.4-35.0) H 09/12/24 12:22
Magnesium 1.8 mg/dl (1.6-2.3) 09/16/24 04:43
Triglycerides 80 mg/dl (10-149) 09/11/24 02:09
LDL Cholesterol, Calc 58 mg/dl 09/11/24 02:09
VLDL Cholesterol, Calc 16 mg/dl (0-30) 09/11/24 02:09
HDL Cholesterol 64 mg/dl 09/11/24 02:09
Free T4 1.56 ng/dl (0.78-2.19) 09/10/24 12:48
09/10/24
11:30
Sgd-Y-Ngvypgayryq Pept 2580
Physical Exam
Constitutional: No acute distress and Comfortable
Cardiovascular: Rhythm/rate is irregular, Pedal edema present, S1S2 is normal and Murmur/rub/gallop absent
Respiratory: Respiratory effort normal and Crackles Present
Neuro/Psych: AO x 3
Data Reviewed
-
Date of Service: September 16, 2024
Medical Decision Making: Reviewed Test Results, Independent Historian Assessment, Test Interpretation and Review of Case with other Provider
EKG: Tracing Personally Visualized and interpreted
Echo: Tracing Personally Visualized and interpreted and Report Reviewed by me
Labs: Labs Reviewed by me
--- NOTE | 2024-09-16 09:12 | PTCARENOTE ---
Pt returned from procedure - SHERICE w/ cardioversion. Shocked 4 times but unsuccessful. Pt arrives back in afib w/ rate 100-110. SPO2 95% room air.
--- NOTE | 2024-09-16 10:05 | W.CARD.TIKOS ---
Initiate Tikosyn
-
I verify that the patient has not taken any verapamil (Isoptin/Calan), ketoconazole (Nizoral), cimetidine (Tagamet), trimethoprim (Trimpex), trimethoprim/sulfamethoxazole (Bactrim), megesterol (Megace), prochlorperazine (Compazine),
hydrochlorothiazide (HCTZ), dolutegravir (Tivicay) or any Class I or Class III anti-arrhythmic within the last three days
AND
I verify that the patient has not taken amiodarone within the last THREE months, or that the patient's amiodarone plasma concentration is <0.3 mcg/mL.
Creatinine 1.1 mg/dL (0.7-1.3) 09/16/24 04:43
Estimated Creat Clear 86 ml/min 09/16/24 04:43
I have assessed the baseline QTc interval (using QT for heart rate less than 60 bpm) and deemed the patient is appropriate for Dofetilide therapy. I understand that Tikosyn is contraindicated if the QTc is >440msec (500msec in patients with
ventricular conduction abnormalities).
Baseline QTc (in msec): 459
QTc interval is greater than 440msec without conduction abnormality OR greater than 500msec with a conduction abnormality, but acceptable to proceed per Cardiology attending.
Ordering Physician: Other (Gigi Watson MD)
[2024-09-16] MEDS: TIKOSYN 500 MCG PO (10:54)
[2024-09-16] MEDS: ALDACTONE 25 MG PO (10:54)
[2024-09-16] MEDS: PROTONIX 40 MG PO (10:54)
[2024-09-16] MEDS: GLUCOPHAGE PO (10:54)
[2024-09-16] MEDS: HYDROPHOR 1 APPLIC TOPICAL (10:55)
[2024-09-16] MEDS: LIPITOR 10 MG PO (10:55)
[2024-09-16] MEDS: ZYLOPRIM 100 MG PO (10:55)
[2024-09-16] MEDS: COZAAR 50 MG PO (10:55)
[2024-09-16] MEDS: LASIX IV (11:03)
--- NOTE | 2024-09-16 11:24 | CM ---
Reviewed chart. Met with Mr. Cantor to review discharge plans. He states he is feeling better. He is starting on Tikosyn and will be here for a few more days. We reviewed [facility] and he is still agreeable to [facility]. Prior to admission he resides with his spouse in a two story home with three steps to enter. He has a full flight of steps to get to bedroom/full bathroom. He has a powder room on the fist floor. Prior to admission he was independent
with ambulation and adls. He sometimes uses a single point cane when needed. He has a single point cane at home. He has a prescription plan and uses [facility]. Medical work-up in progress. The discharge plan is to return home with his spouse
and [facility] when medically stable.
--- NOTE | 2024-09-16 12:58 | W.PN.HOSP.TC ---
Today's Communication/Plan
-
monitor vitals
see plan
initiate tikosyn per cards; monitor Qtc
dc metformin
Assessment / Plan
Assessment / Plan
New onset Afib with RVR and new onset HFpEF CHF exacerbation (echo with EF 50% with hypokinesis)--apprec cards- started on eliquis by cards--troponin neg--concern for PE based on dilated and hypokinetic RV although CT chest reported negative. s/p
SHERICE/cardioversion 09/16, unsuccessful. Now started on Tikosyn. Monitor QTc
Acute hypoxic respiratory failure/acute on chronic diastolic congestive heart failure--improved . multifactorial due to Pulmonary edema likely from new onset CHF and pleural effusions related - off of o2 at this point. Maintained on diuretic
therapy per cardiology.
Right pleural effusion -s/p thoracentesis of 1.4L yellow pleural fluid. Fluid WBC 270, 86% mononuclear. Glucose 135/LDH 78. Fluid is transudative in nature. Cyto-pathology pending.
RLE nonhealing wound (POA)--likely due to edema/ venous stasis dermatitis.
Pre-diabetes--no history of DM-- HGB A1C 6.4-discussed diabetes pathophysiology, patient is motivated to actually lose weight and has done so in the past. Weight materials management manager visit Dr. Schwartz's number provided. dc metformin
Hypo-magnesemia--likely from ETOH intake--replete
Hyper-bilirubinemia- monitor
Thrombocytopenia--?etiology--ETOH, other--follow for now
Hypothyroidism-- TSH 5- f/u outpt
Morbid obesity due to excess calories--affects all aspects of care- diet counselling-- consider outpt sleep apnea testing
Essential HTN--cont home losartan-hctz, metoprolol succinate
HLD-- continue home statin
GERD-- cont home omeprazole
Gout- cont allopurinol
DVT proph-- eliquis
Code status--FULL CODE
Detailed discussion regarding patient heart failure and recommended medication of GDMT. Patient Farxiga co-pay is significantly high ~ 800/month and not financially possible to continue at this stage. Patient is planning to continue on Eliquis.
Discussed with cardiology wants to continue volume optimizing patient over the weekend.
General: Comfortable and Morbidly Obese
HEENT: Negative Oxygen
Respiratory: Clear to Auscultation
Cardiac: Regular Rhythm and S1/S2; Negative Murmur or Rub
GI: Soft, Nontender and Nondistended
Musculoskeletal: Edema, Right Lower Extrem and Edema, Left Lower Extrem
Neuro: Awake, Alert, Oriented, No Motor Deficits and Nonfocal/Grossly Intact
Psych: Calm
Anticipated Discharge: > 48 hours
Subjective/Interval History
-
Date of Service: September 16, 2024
denies pain
Objective Data
-
Labs:
Laboratory Results
09/16/24
04:43
WBC 5.5
Hgb 13.1
Hct 39.9
Plt Count 114 L
Sodium 141
Potassium 3.8
Chloride 96 L
Carbon Dioxide 41 H
BUN 27 H
Creatinine 1.1
Glucose 119 H
Calcium 9.1
Total Bilirubin 1.6 H
AST 25
ALT 19
Alkaline Phosphatase 95
Vital Signs:
Vital Signs
Temp Pulse Resp BP Pulse Ox
97.7 F 106 20 128/97 94
09/16/24 11:23 09/16/24 12:00 09/16/24 11:23 09/16/24 11:24 09/16/24 11:24
I&O
09/15/24 09/16/24 09/17/24
06:59 06:59 06:59
Intake Total 240 / 240 250 / 250
Output Total 2650 / 2650 2625 / 2625
Balance -2410 / -2410 -2375 / -2375
--- NOTE | 2024-09-16 14:15 | PTCARENOTE ---
Pt oob and ambulatory around unit. EKG s/p 1st dose of tikosyn shows QTc of 528ms - tank farm attendant made aware. Afib on monitor w/ rate 90s. Pt has not complaints.
[2024-09-16] MEDS: LASIX 40 MG PO (15:50)
[2024-09-16] MEDS: TIKOSYN 250 MCG PO (20:00)
[2024-09-16] MEDS: TOPROL XL 100 MG PO (20:17)
[2024-09-16] MEDS: INDOCIN 50 MG PO (21:59)
--- NOTE | 2024-09-16 22:48 | PTCARENOTE ---
assumed care of patient at the change of shift. AAOx3. denies any complaints. independent in the room. Afib on tele 100s-115s. bp stable. patient asking to take a shower. House RELISH MAKER placed shower order. patient showered and tolerated. wound care
completed. L knee gout pain- PRN Indocin given and ice pack applied. call tapia within reach. makes needs known.
Tikosyn dose #2 given. QTc post- 520.
[2024-09-17] VITALS (7 sets, daily range): BP systolic 103–135; BP diastolic 72–103; BMI 45.5
[2024-09-17 05:38] LABS: % Eosinophils 3.7 % (0-6); % Immature Granulocytes 0.2 % (0-0.5); % Lymphocytes 17.2 % (20.5-51.1); % Neutrophils 62.9 % (42.2-75.2); Absolute Basophils 0.1 10^3/uL (0-0.2); Absolute Eosinophils 0.2 10^3/uL (0-0.7); Absolute Lymphocytes 0.8 10^3/uL (1.2-3.4); Absolute Monocytes 0.7 10^3/uL (0.1-0.6); Absolute Neutrophils 3.1 10^3/uL (1.4-6.5); Hematocrit 39.4 % (39.0-52.0); Hemoglobin 12.4 g/dL (13.0-18.0); Mean Corp Hgb Conc. 31.5 g/dL (33.0-37.0); Mean Corpuscular Hgb 27.9 pg (27.0-31.0); Mean Corpuscular Volume 88.7 fL (80.0-94.0); Mean Platelet Volume 11.2 fL (7.4-10.4); Nucleated Red Blood Cells % 0 % (-); Platelet Count 117 10^3/uL (130-400); Red Blood Cell Count 4.44 10^6/uL (4.70-6.10); Red Cell Dist. Width 16.6 % (11.5-14.5); White Blood Cell Count 4.9 10^3/uL (4.8-10.8)
[2024-09-17 06:04] LABS: Blood Urea Nitrogen 24 mg/dl (9-20); Calcium 8.9 mg/dl (8.4-10.2); Carbon Dioxide 37 mmol/L (22-30); Chloride 96 mmol/L (98-107); Estimated Creatinine Clearance 85 ml/min; Glucose 105 mg/dl (70-99); Potassium 3.4 mmol/L (3.5-5.1); Sodium 140 mmol/L (135-145); eGFR > 60.00
--- NOTE | 2024-09-17 07:51 | W.PN.CD ---
Today's Communication / Plan
-
Continue dofetilide 250 mcg
Increase PO Lasix to 80mg BID
Replete K
Impression / Plan
-
Outpatient edge sander will be: Missy Avila MD
Acute HFpEF:
- Suspect he is approaching euvolemic. BUN and Cr up slightly.
- He did not pee to 40mg PO Lasix. Increase to 80mg PO Lasix BID
- Meds: Aldactone, ARB. He feels he cannot afford Farxiga so its stopped
- Controlling AFib will help heart failure
- Outpatient stress test reasonable
New AFib, persisting so far
- Attempted SHERICE/DCCV 09/16. No CONI thrombus but DCCV unsuccessful despite 4 shocks
- Dofetilide started 09/16. Dose decreased to 250 mcg. QTc 482 ms by last ECG.
- Repeat DCCV prior to discharge (09/19) if not in NSR
- Rate: Better, continue Metoprolol 100mg BID
- He is OK paying for Eliquis
- [id number] at least 3 (HF, HTN, age1)
- Early ablation is appropriate but only after closer to euvolemia and preferably when BMI closer to 40
- Education about anticoagulation and afib risk factor modification is underway
- Outpt sleep study reasonable
HTN
Hyperlipidemia
Brand's esophagus => PPI
Colonic polyps, tubular adenomas
Morbid obesity, BMI 49.9 but he has a lot of fluid to remove with diuresis
Gout with flare
Hard of hearing, uses hearing aid
Subjective:
He denies SOB but has lingering cough and congestion. Does not feel he peed much in response to 40mg PO Lasix.
Med cost per case management: So his first script for Farxiga for 90 days would be $851.57, after he meets his deductible he would pay 25% of the cost of the medications. Eliquis 5 mg po bid co-pay would be 25% of the cost of the
medication-Approx. $125.00 a month, Entresto 24/26 mg po bid co-pay would be 25% cost of the medications. All three medications would need a prior auth. The prior auth number is( [id number])
Echo 09/11/2024:
Mildly reduced left ventricular systolic function. Left ventricular ejection
fraction is 50% by Sheffield's method of discs.
Severely enlarged right ventricular size with depressed systolic function.
Mild to moderate mitral regurgitation.
Mild pulmonary hypertension.
Physical Exam
Vital Signs/Labs
Vital Signs
Temp Pulse Resp BP Pulse Ox
97.5 F 103 16 121/73 95
09/17/24 07:31 09/16/24 22:00 09/17/24 07:31 09/16/24 22:00 09/17/24 07:31
09/16/24 09/17/24 09/18/24
06:59 06:59 06:59
Actual Weight 299 lb 2.676 oz 299 lb 2.676 oz
09/17/24 05:00
09/17/24 05:00
APTT 36.5 Sec (23.4-35.0) H 09/12/24 12:22
Magnesium 1.8 mg/dl (1.6-2.3) 09/16/24 04:43
Triglycerides 80 mg/dl (10-149) 09/11/24 02:09
LDL Cholesterol, Calc 58 mg/dl 09/11/24 02:09
VLDL Cholesterol, Calc 16 mg/dl (0-30) 09/11/24 02:09
HDL Cholesterol 64 mg/dl 09/11/24 02:09
Free T4 1.56 ng/dl (0.78-2.19) 09/10/24 12:48
09/10/24
11:30
Gbx-K-Udixxccogoj Pept 2580
Physical Exam
Constitutional: No acute distress and Comfortable
Cardiovascular: Rhythm/rate is irregular, Pedal edema present, S1S2 is normal and Murmur/rub/gallop absent
Respiratory: Respiratory effort normal and Crackles Present
Neuro/Psych: AO x 3
Data Reviewed
-
Date of Service: September 17, 2024
Medical Decision Making: Reviewed Test Results, Independent Historian Assessment, Test Interpretation and Review of Case with other Provider
EKG: Tracing Personally Visualized and interpreted
Echo: Report Reviewed by me
Labs: Labs Reviewed by me
[2024-09-17] MEDS: KCL 40 MEQ PO (08:08)
[2024-09-17] MEDS: ZYLOPRIM 100 MG PO (08:09)
[2024-09-17] MEDS: ALDACTONE 25 MG PO (08:09)
[2024-09-17] MEDS: LASIX 80 MG PO ×2 (08:09→16:08)
[2024-09-17] MEDS: ELIQUIS 5 MG PO ×2 (08:10→19:56)
[2024-09-17] MEDS: LIPITOR 10 MG PO (08:10)
[2024-09-17] MEDS: COZAAR 50 MG PO (08:10)
[2024-09-17] MEDS: PROTONIX 40 MG PO (08:10)
[2024-09-17] MEDS: TOPROL XL 100 MG PO ×2 (08:10→19:56)
[2024-09-17] MEDS: HYDROPHOR 1 APPLIC TOPICAL (08:10)
[2024-09-17] MEDS: TIKOSYN 250 MCG PO ×2 (08:33→19:56)
--- NOTE | 2024-09-17 11:38 | CM ---
Reviewed chart. Telephone call to [facility], ([phone]) to check on co-pay for Dofetilide 250 mcg bid. His co-pay would be $112.13 for 90 days. After he mets his deductible the co-pay would be $49.45 for 90 days. Reviewed co-pay with Mr. Cantor.
He is agreeable to the co-pay. Telephone call to [facility] in [place] to confirm if they have Dofetilide 250 mcg in stock. [facility] has Dofetilide in stock. He will need a three day script to go to [facility] for a three day supply to
go home with him. Prior to admission he resides with his spouse in a two story home with three steps to enter. He has a full flight of steps to get to bedroom/full bathroom. He has a powder room on the first floor. Prior to admission he was
independent with ambulation and adls. He sometimes uses a single point cane when needed. He has a prescription plan with [facility] and uses [facility].. Medical work-up in progress. The discharge plan is to return home with his spouse and
[facility] when medically stable.
--- NOTE | 2024-09-17 14:18 | PTCARENOTE ---
Pt offers no complaints today. Ambulatory in room and around unit. Voiding more after increasing lasix to 80mg PO BID. Afib on monitor w/ rate 90-110 w/ occasional short episodes of sinus tach.
--- NOTE | 2024-09-17 14:48 | W.PN.HOSP.TC ---
Today's Communication/Plan
-
Monitor vitals
See plan
Replete potassium
Continue with diuresis
Continue with Tikosyn
Monitor QTc
Assessment / Plan
Assessment / Plan
New onset Afib with RVR and new onset HFpEF CHF exacerbation (echo with EF 50% with hypokinesis)--apprec cards- started on eliquis by cards--troponin neg--concern for PE based on dilated and hypokinetic RV although CT chest reported negative. s/p
SHERICE/cardioversion 09/16, unsuccessful. Now started on Tikosyn. Monitor QTc
Acute hypoxic respiratory failure/acute on chronic diastolic congestive heart failure--improved . multifactorial due to Pulmonary edema likely from new onset CHF and pleural effusions related - off of o2 at this point. Maintained on diuretic
therapy per cardiology.
Hypokalemia
Replete
Right pleural effusion -s/p thoracentesis of 1.4L yellow pleural fluid. Fluid WBC 270, 86% mononuclear. Glucose 135/LDH 78. Fluid is transudative in nature. Cyto-pathology pending.
RLE nonhealing wound (POA)--likely due to edema/ venous stasis dermatitis.
Pre-diabetes--no history of DM-- HGB A1C 6.4-discussed diabetes pathophysiology, patient is motivated to actually lose weight and has done so in the past. Weight management tech visit Dr. Schwartz's number provided. dc metformin
Hypo-magnesemia--likely from ETOH intake--replete
Hyper-bilirubinemia- monitor
Thrombocytopenia--?etiology--ETOH, other--follow for now
Hypothyroidism-- TSH 5- f/u outpt
Morbid obesity due to excess calories--affects all aspects of care- diet counselling-- consider outpt sleep apnea testing
Essential HTN--cont home losartan-hctz, metoprolol succinate
HLD-- continue home statin
GERD-- cont home omeprazole
Gout- cont allopurinol
DVT proph-- eliquis
Code status--FULL CODE
Detailed discussion regarding patient heart failure and recommended medication of GDMT. Patient Bashir co-pay is significantly high ~ 800/month and not financially possible to continue at this stage. Patient is planning to continue on Eliquis.
Discussed with cardiology wants to continue volume optimizing patient over the weekend.
General: Comfortable and Morbidly Obese
HEENT: Negative Oxygen
Respiratory: Clear to Auscultation
Cardiac: Regular Rhythm and S1/S2; Negative Murmur or Rub
GI: Soft, Nontender and Nondistended
Musculoskeletal: Edema, Right Lower Extrem and Edema, Left Lower Extrem
Neuro: Awake, Alert, Oriented, No Motor Deficits and Nonfocal/Grossly Intact
Psych: Calm
Anticipated Discharge: 24 - 48 hours
Subjective/Interval History
-
Date of Service: September 17, 2024
Denies pain
Objective Data
-
Labs:
Laboratory Results
09/17/24
05:00
WBC 4.9
Hgb 12.4 L
Hct 39.4
Plt Count 117 L
Sodium 140
Potassium 3.4 L
Chloride 96 L
Carbon Dioxide 37 H
BUN 24 H
Creatinine 1.1
Glucose 105 H
Calcium 8.9
Vital Signs:
Vital Signs
Temp Pulse Resp BP Pulse Ox
98.5 F 103 12 108/83 96
09/17/24 10:44 09/17/24 14:00 09/17/24 10:44 09/17/24 10:44 09/17/24 10:44
I&O
09/16/24 09/17/24 09/18/24
06:59 06:59 06:59
Intake Total 250 / 250 480 / 480
Output Total 2625 / 2625 1000 / 1000 2200 / 2200
Balance -2375 / -2375 -520 / -520 -2200 / -2200
[2024-09-17] MEDS: INDOCIN 50 MG PO (22:11)
[2024-09-18] VITALS (10 sets, daily range): BP systolic 77–125; BP diastolic 48–101; PULSE 115; BMI 44.2
--- NOTE | 2024-09-18 00:33 | PTCARENOTE ---
Received pt @ change of shift. AAOx3, A-Fib/Sinus Tach on monitor, other VSS. Discussed Tikosyn protocol and care plan for evening. Discussed wound care-- pt verbalized not wanting to have it done since it was completed the previous day. RN
recommended checking it in the morning-- pt agreed. Call tapia within reach.
[2024-09-18 05:00] LABS: % Eosinophils 3.3 % (0-6); % Immature Granulocytes 0.2 % (0-0.5); % Lymphocytes 14.9 % (20.5-51.1); % Monocytes 14.7 % (1.7-9.3); % Neutrophils 65.9 % (42.2-75.2); Absolute Basophils 0.1 10^3/uL (0-0.2); Absolute Eosinophils 0.2 10^3/uL (0-0.7); Absolute Lymphocytes 0.8 10^3/uL (1.2-3.4); Absolute Monocytes 0.8 10^3/uL (0.1-0.6); Absolute Neutrophils 3.4 10^3/uL (1.4-6.5); Hematocrit 39.2 % (39.0-52.0); Mean Corp Hgb Conc. 33.2 g/dL (33.0-37.0); Mean Corpuscular Hgb 28.5 pg (27.0-31.0); Mean Platelet Volume 10.6 fL (7.4-10.4); Nucleated Red Blood Cells % 0 % (-); Platelet Count 121 10^3/uL (130-400); Red Blood Cell Count 4.56 10^6/uL (4.70-6.10); Red Cell Dist. Width 16.6 % (11.5-14.5); White Blood Cell Count 5.2 10^3/uL (4.8-10.8)
[2024-09-18 05:21] LABS: Blood Urea Nitrogen 26 mg/dl (9-20); Carbon Dioxide 32 mmol/L (22-30); Chloride 98 mmol/L (98-107); Estimated Creatinine Clearance 94 ml/min; Glucose 115 mg/dl (70-99); Potassium 3.6 mmol/L (3.5-5.1); Sodium 140 mmol/L (135-145); eGFR > 60.00
[2024-09-18] MEDS: COZAAR 50 MG PO (08:20)
[2024-09-18] MEDS: ALDACTONE 25 MG PO (08:20)
[2024-09-18] MEDS: LASIX 80 MG PO (08:21)
[2024-09-18] MEDS: LIPITOR 10 MG PO (08:21)
[2024-09-18] MEDS: ZYLOPRIM 100 MG PO (08:21)
[2024-09-18] MEDS: ELIQUIS 5 MG PO ×2 (08:21→20:46)
[2024-09-18] MEDS: PROTONIX 40 MG PO (08:21)
[2024-09-18] MEDS: TIKOSYN 250 MCG PO ×2 (08:21→20:46)
[2024-09-18] MEDS: TOPROL XL 100 MG PO ×2 (08:21→20:46)
[2024-09-18] MEDS: HYDROPHOR 1 APPLIC TOPICAL (08:22)
--- NOTE | 2024-09-18 09:09 | W.PN.CD ---
Today's Communication / Plan
-
DCCV tomorrow then home
NPO pMN
Continue Dofetilide
Decrease PO Lasix to 80mg daily
Impression / Plan
-
Outpatient baker test will be: Missy Avila MD
Acute HFpEF:
- Suspect he is euvolemic at 290 lb
- Decrease Lasix to 80mg daily which will be his discharge dose
- Meds: Aldactone, ARB. He feels he cannot afford Farxiga so its stopped
- Controlling AFib will help heart failure
- Outpatient stress test reasonable
New AFib, persisting so far
- Attempted SHERICE/DCCV 09/16. No CONI thrombus but DCCV unsuccessful despite 4 shocks
- Dofetilide started 09/16. Dose decreased to 250 mcg.
- Repeat DCCV tomorrow
- Rate: Better, continue Metoprolol 100mg BID
- He is OK paying for Eliquis
- [id number] at least 3 (HF, HTN, age1)
- Early ablation is appropriate but only after closer to euvolemia and preferably when BMI closer to 40
- Education about anticoagulation and afib risk factor modification is underway
- Outpt sleep study reasonable
HTN
Hyperlipidemia
Brand's esophagus => PPI
Colonic polyps, tubular adenomas
Morbid obesity, BMI 49.9 but he has a lot of fluid to remove with diuresis
Gout with flare
Hard of hearing, uses hearing aid
Subjective:
Put out well to 80mg Lasix. Feels his leg swelling is gone and breathing is at baseline.
Med cost per case management: So his first script for Farxiga for 90 days would be $851.57, after he meets his deductible he would pay 25% of the cost of the medications. Eliquis 5 mg po bid co-pay would be 25% of the cost of the
medication-Approx. $125.00 a month, Entresto 24/26 mg po bid co-pay would be 25% cost of the medications. All three medications would need a prior auth. The prior auth number is( [id number])
Echo 09/11/2024:
Mildly reduced left ventricular systolic function. Left ventricular ejection
fraction is 50% by Sheffield's method of discs.
Severely enlarged right ventricular size with depressed systolic function.
Mild to moderate mitral regurgitation.
Mild pulmonary hypertension.
Physical Exam
Vital Signs/Labs
Vital Signs
Temp Pulse Resp BP Pulse Ox
97.5 F 113 22 121/101 94
09/18/24 08:08 09/18/24 08:20 09/18/24 08:08 09/18/24 08:20 09/18/24 08:08
09/17/24 09/18/24 09/19/24
06:59 06:59 06:59
Actual Weight 290 lb 12.635 oz
09/18/24 04:48
09/18/24 04:48
APTT 36.5 Sec (23.4-35.0) H 09/12/24 12:22
Magnesium 1.8 mg/dl (1.6-2.3) 09/16/24 04:43
Triglycerides 80 mg/dl (10-149) 09/11/24 02:09
LDL Cholesterol, Calc 58 mg/dl 09/11/24 02:09
VLDL Cholesterol, Calc 16 mg/dl (0-30) 09/11/24 02:09
HDL Cholesterol 64 mg/dl 09/11/24 02:09
Free T4 1.56 ng/dl (0.78-2.19) 09/10/24 12:48
09/10/24
11:30
Dex-O-Piqkgvwiqgw Pept 2580
Physical Exam
Constitutional: No acute distress and Comfortable
Cardiovascular: Rhythm/rate is irregular, Pedal edema present (R leg), S1S2 is normal and Murmur/rub/gallop absent
Respiratory: Respiratory effort normal and Lungs clear to auscul.
Neuro/Psych: AO x 3
Data Reviewed
-
Date of Service: September 18, 2024
Medical Decision Making: Reviewed Test Results, Independent Historian Assessment, Test Interpretation and Review of Case with other Provider
EKG: Tracing Personally Visualized and interpreted
Echo: Report Reviewed by me
Labs: Labs Reviewed by me
--- NOTE | 2024-09-18 10:44 | CM ---
Reviewed chart, Met with Mr. Cantor to review discharge plans. He states he feel well and maybe able to go home soon. He states he is reconsidering taking Farxiga. Placed the one month free coupon fro Farxiga and Eliquis in his red discharge
folder. Prior to admission he resides with his spouse in a two story home with three steps to enter. He has a full flight of steps to get to bedroom/full bathroom . He has a powder room on the first floor. Prior to admission he was independent with
ambulation and adls. He has a single point cane at home to use if needed. He has a prescription plan and uses [facility]. Medical work-up in progress. The discharge plan is to return home with his spouse and [facility] when
medically stable.
--- NOTE | 2024-09-18 12:36 | W.PN.HOSP.TC ---
Today's Communication/Plan
-
Monitor vital signs see plan
Continue with Tikosyn, metoprolol
plan for CV tomorrow
lasix
Assessment / Plan
Assessment / Plan
New onset Afib with RVR and new onset HFpEF CHF exacerbation (echo with EF 50% with hypokinesis)--apprec cards- started on eliquis by cards--troponin neg--concern for PE based on dilated and hypokinetic RV although CT chest reported negative. s/p
SHERICE/cardioversion 09/16, unsuccessful. Now started on Tikosyn. Monitor QTc
plan for repeat CV 09/19
Acute hypoxic respiratory failure/acute on chronic diastolic congestive heart failure--improved . multifactorial due to Pulmonary edema likely from new onset CHF and pleural effusions related - off of o2 at this point. Maintained on diuretic
therapy per cardiology.
Hypokalemia
monitor
Right pleural effusion -s/p thoracentesis of 1.4L yellow pleural fluid. Fluid WBC 270, 86% mononuclear. Glucose 135/LDH 78. Fluid is transudative in nature. Cyto-pathology pending.
RLE nonhealing wound (POA)--likely due to edema/ venous stasis dermatitis.
Pre-diabetes--no history of DM-- HGB A1C 6.4-discussed diabetes pathophysiology, patient is motivated to actually lose weight and has done so in the past. Weight business management consultant visit Dr. Schwartz's number provided. dc metformin
Hypo-magnesemia--likely from ETOH intake--replete
Hyper-bilirubinemia- monitor
Thrombocytopenia--?etiology--ETOH, other--follow for now
Hypothyroidism-- TSH 5- f/u outpt
Morbid obesity due to excess calories--affects all aspects of care- diet counselling-- consider outpt sleep apnea testing
Essential HTN--cont losartan, metoprolol
HLD-- continue home statin
GERD-- cont home omeprazole
Gout- cont allopurinol
DVT proph-- eliquis
Code status--FULL CODE
Detailed discussion regarding patient heart failure and recommended medication of GDMT. Patient Bashir co-pay is significantly high ~ 800/month and not financially possible to continue at this stage. Patient is planning to continue on Eliquis.
Discussed with cardiology wants to continue volume optimizing patient
General: Comfortable and Morbidly Obese
HEENT: Negative Oxygen
Respiratory: Clear to Auscultation
Cardiac: irregular Rhythm and S1/S2; Negative Murmur or Rub
GI: Soft, Nontender and Nondistended
Musculoskeletal: Edema, Right Lower Extrem and Edema, Left Lower Extrem
Neuro: Awake, Alert, Oriented, No Motor Deficits and Nonfocal/Grossly Intact
Psych: Calm
Anticipated Discharge: Within 24 hours
Subjective/Interval History
-
Date of Service: September 18, 2024
Objective Data
-
Labs:
Laboratory Results
09/18/24
04:48
WBC 5.2
Hgb 13.0
Hct 39.2
Plt Count 121 L
Sodium 140
Potassium 3.6
Chloride 98
Carbon Dioxide 32 H
BUN 26 H
Creatinine 1.0
Glucose 115 H
Calcium 9.0
Vital Signs:
Vital Signs
Temp Pulse Resp BP Pulse Ox
98.1 F 110 18 118/79 95
09/18/24 11:09 09/18/24 12:00 09/18/24 11:09 09/18/24 10:49 09/18/24 11:09
I&O
09/17/24 09/18/24 09/19/24
06:59 06:59 06:59
Intake Total 480 / 480
Output Total 1000 / 1000 4300 / 4300
Balance -520 / -520 -4300 / -4300
--- NOTE | 2024-09-18 13:20 | WOUNDNOTE ---
WOC RN NOTE: Reviewed chart and met with patient to follow up on left lower leg wound. Left lower leg wounds are progressing toward healing. Patient with +1+2 edema with +palpable pulse. Size G tubi director transition applied as patient looking for an
alternative to THIERNO wraps when he gets home. Patient agreeable to wearing compression bilaterally. Reviewed care for venous stasis including applying moisturizer daily and keep legs elevated. Plan is for discharge home with VN.
--- NOTE | 2024-09-18 15:52 | WOUNDNOTE ---
RIGHT LOWER LEG
--- NOTE | 2024-09-18 15:53 | WOUNDNOTE ---
RIGHT LOWER LEG
--- NOTE | 2024-09-18 17:00 | PTCARENOTE ---
Pt is AOx3, no complaints of pain or discomfort. Afib on tele monitor. Plan for CV tomorrow, will be NPO after midnight. Independent OOB. Call tapia within reach.
[2024-09-18] MEDS: INDOCIN 50 MG PO (21:56)
--- NOTE | 2024-09-19 01:38 | PTCARENOTE ---
Received pt @ change of shift. AAOx3, A-Fib on monitor, VSS. Pt understands being NPO @ midnight for CV in morning. Discussed plan of care for evening. Pt verbalizes understanding. Call tapia within reach.
[2024-09-19 03:58] VITALS: BP 152/93
[2024-09-19 04:04] VITALS: BMI 44.1
[2024-09-19 04:45] LABS: % Basophils 0.9 % (0-2); % Immature Granulocytes 0.4 % (0-0.5); % Monocytes 13.5 % (1.7-9.3); % Neutrophils 63.2 % (42.2-75.2); Absolute Basophils 0.1 10^3/uL (0-0.2); Absolute Eosinophils 0.2 10^3/uL (0-0.7); Absolute Lymphocytes 1.1 10^3/uL (1.2-3.4); Absolute Monocytes 0.8 10^3/uL (0.1-0.6); Absolute Neutrophils 3.6 10^3/uL (1.4-6.5); Hematocrit 40.5 % (39.0-52.0); Hemoglobin 13.1 g/dL (13.0-18.0); Mean Corp Hgb Conc. 32.3 g/dL (33.0-37.0); Mean Corpuscular Hgb 27.8 pg (27.0-31.0); Mean Corpuscular Volume 85.8 fL (80.0-94.0); Mean Platelet Volume 10.5 fL (7.4-10.4); Nucleated Red Blood Cells % 0 % (-); Platelet Count 138 10^3/uL (130-400); Red Blood Cell Count 4.72 10^6/uL (4.70-6.10); Red Cell Dist. Width 16.4 % (11.5-14.5); White Blood Cell Count 5.6 10^3/uL (4.8-10.8)
[2024-09-19 04:49] LABS: Blood Urea Nitrogen 29 mg/dl (9-20); Calcium 9.1 mg/dl (8.4-10.2); Carbon Dioxide 33 mmol/L (22-30); Chloride 98 mmol/L (98-107); Estimated Creatinine Clearance 77 ml/min; Glucose 113 mg/dl (70-99); Potassium 3.5 mmol/L (3.5-5.1); Sodium 141 mmol/L (135-145); eGFR > 60.00
--- NOTE | 2024-09-19 07:40 | W.PN.CD ---
Today's Communication / Plan
-
home today on current meds:
Losartan 50mg daily
Spironolactone 25 mg dialy
Eliquis 5mg BID
metoprolol succinate 100mg bid
Tikosyn 250mg po [id number]---dijvfui QTC measuremtn in sinus
cannot afford [id number]
Impression / Plan
-
Outpatient hand cultivator: Missy Avila MD
Acute HFpEF:
- Suspect he is euvolemic at 290 lb
- Decrease Lasix to 80mg daily which will be his discharge dose
- Meds: Aldactone, ARB. He feels he cannot afford Farxiga so its stopped
- Controlling AFib will help heart failure
- Outpatient stress test reasonable
New AFib, persisting so far
- Attempted SHERICE/DCCV 09/16. No CONI thrombus but DCCV unsuccessful despite 4 shocks
- Dofetilide started 09/16. Dose decreased to 250 mcg.
- QTC 504 but still in flutter makes measurement difficult, will reevaluate after sinus rhythm.
- Repeat DCCV today
- Rate: Better, continue Metoprolol 100mg BID
- He is OK paying for Eliquis
- [id number] at least 3 (HF, HTN, age1)
- Early ablation is appropriate but only after closer to euvolemia and preferably when BMI closer to 40
- Education about anticoagulation and afib risk factor modification is underway
- Outpt sleep study reasonable
HTN
Hyperlipidemia
Brand's esophagus => PPI
Colonic polyps, tubular adenomas
Morbid obesity, BMI 49.9 but he has a lot of fluid to remove with diuresis
Gout with flare
Hard of hearing, uses hearing aid
Subjective:
he is feeling well anxious for discharge.
Med cost per case management: So his first script for Farxiga for 90 days would be $851.57, after he meets his deductible he would pay 25% of the cost of the medications. Eliquis 5 mg po bid co-pay would be 25% of the cost of the
medication-Approx. $125.00 a month, Entresto 24/26 mg po bid co-pay would be 25% cost of the medications. All three medications would need a prior auth. The prior auth number is( [id number])
Echo 09/11/2024:
Mildly reduced left ventricular systolic function. Left ventricular ejection
fraction is 50% by Sheffield's method of discs.
Severely enlarged right ventricular size with depressed systolic function.
Mild to moderate mitral regurgitation.
Mild pulmonary hypertension.
Physical Exam
Vital Signs/Labs
Vital Signs
Temp Pulse Resp BP Pulse Ox
97.5 F 91 18 152/93 94
09/19/24 03:56 09/19/24 06:00 09/19/24 03:56 09/19/24 03:58 09/19/24 03:56
09/18/24 09/19/24 09/20/24
06:59 06:59 06:59
Actual Weight 290 lb 12.635 oz 289 lb 10.998 oz
09/19/24 04:11
09/19/24 04:11
APTT 36.5 Sec (23.4-35.0) H 09/12/24 12:22
Magnesium 1.8 mg/dl (1.6-2.3) 09/16/24 04:43
Triglycerides 80 mg/dl (10-149) 09/11/24 02:09
LDL Cholesterol, Calc 58 mg/dl 09/11/24 02:09
VLDL Cholesterol, Calc 16 mg/dl (0-30) 09/11/24 02:09
HDL Cholesterol 64 mg/dl 09/11/24 02:09
Free T4 1.56 ng/dl (0.78-2.19) 09/10/24 12:48
09/10/24
11:30
Ywl-H-Mrazvnmrmoi Pept 2580
Physical Exam
Constitutional: No acute distress
Cardiovascular: JVD pressure is normal, Systolic murmur absent, Diastolic murmur absent, Rhythm/rate is irregular and Pedal edema present (trace b/l )
Respiratory: Respiratory effort normal, Lungs clear to auscul., Wheeze Absent, Crackles Absent and Rhonchi Absent
Neuro/Psych: AO x 3
Data Reviewed
-
Date of Service: September 19, 2024
Medical Decision Making: Review of Case with other Provider (Dr Cao, home today will look at qtc in sinus)
[2024-09-19 07:42] VITALS: BP 106/71
[2024-09-19] MEDS: LASIX 80 MG PO (08:15)
[2024-09-19] MEDS: TIKOSYN 250 MCG PO (08:15)
[2024-09-19] MEDS: LIPITOR 10 MG PO (08:15)
[2024-09-19] MEDS: ELIQUIS 5 MG PO (08:15)
[2024-09-19] MEDS: PROTONIX 40 MG PO (08:15)
[2024-09-19] MEDS: ALDACTONE 25 MG PO (08:15)
[2024-09-19] MEDS: COZAAR 50 MG PO (08:16)
[2024-09-19] MEDS: HYDROPHOR 1 APPLIC TOPICAL (08:16)
[2024-09-19] MEDS: TOPROL XL 100 MG PO (08:16)
[2024-09-19] MEDS: ZYLOPRIM 100 MG PO (08:16)
--- NOTE | 2024-09-19 11:21 | ITS.CL.CARDI ---
Shrink Pit Supervisor - Cardioversion
Cardioversion
Procedure Report:
Procedure: Direct current electrical cardioversion
Pre-operative diagnosis: Persistent atrial fibrillation
Post-operative diagnosis: Persistent atrial fibrillation status post DC cardioversion to sinus rhythm
Anesthesia: MAC
Attending Physician: Hugh Yeung MD
Procedure Description: The patient was brought to the electrophysiology laboratory in the fasting state. Adherence to anticoagulation regimen was confirmed. Informed consent was obtained from the patient prior to the start of the procedure.
Electrodes were placed on the patient and connected to an external defibrillator. Monitoring of blood pressure, ECG tracings, and pulse oximetry was initiated. The pads were applied to the patient in the anterior and posterior positions. The patient
was sedated by the anesthesiologist. A 200 joule biphasic synchronized shock was delivered to the patient under MAC anesthesia. Sinus rhythm was successfully restored. The patient recovered uneventfully from MAC anesthesia. There were no immediate
post-procedure complications. The patient left the lab in good condition. The attending physician was present throughout the entire procedure.
Impression: Successful direct current cardioversion with hindu of sinus rhythm after one 200 joule biphasic synchronized shock.
[2024-09-19 12:08] VITALS: BP 114/84
--- NOTE | 2024-09-19 12:26 | CM ---
Reviewed chart. Met with Mr.. Cantor to review discharge plans. He states he is feeling well and maybe able to go home soon. We reviewed [facility] with [facility] and he is agreeable to [facility] services. Prior to admission he resides with
his spouse in a two story home with three steps to enter. He has a full flight of steps tp get to bedroom/full bathroom. He has a powder room on the first floor. Prior to admission he was independent with ambulation and adls. He has a single
point cane tat home to use if needed. He has a prescription plan with [facility] and uses [facility]. Medical work-up in progress. The discharge plan is to return home with his spouse and [facility] when medically stable.
--- NOTE | 2024-09-19 13:08 | W.PN.HOSP.TC ---
Today's Communication/Plan
-
monitor vitals
See plan
Prolonged, DC further discussion per cardiology
Successful cardioversion today
Continue metoprolol, Lasix
Discharge today
Time of discharge 38 minutes
Assessment / Plan
Assessment / Plan
New onset Afib with RVR and new onset HFpEF CHF exacerbation (echo with EF 50% with hypokinesis)--apprec cards- started on eliquis by cards--troponin neg--concern for PE based on dilated and hypokinetic RV although CT chest reported negative. s/p
SHERICE/cardioversion 09/16, unsuccessful. Was on Tikosyn, now stopped due to prolonged QTc. Successful cardioversion 09/19. Per cardiology patient for discharge home with outpatient follow-up for ablation
Acute hypoxic respiratory failure/acute on chronic diastolic congestive heart failure--improved . multifactorial due to Pulmonary edema likely from new onset CHF and pleural effusions related - off of o2 at this point. Maintained on diuretic
therapy per cardiology.
Hypokalemia
monitor
Right pleural effusion -s/p thoracentesis of 1.4L yellow pleural fluid. Fluid WBC 270, 86% mononuclear. Glucose 135/LDH 78. Fluid is transudative in nature. Cyto-pathology pending.
RLE nonhealing wound (POA)--likely due to edema/ venous stasis dermatitis.
Pre-diabetes--no history of DM-- HGB A1C 6.4-discussed diabetes pathophysiology, patient is motivated to actually lose weight and has done so in the past. Weight change management coordinator visit Dr. Schwartz's number provided. dc metformin
Hypo-magnesemia--likely from ETOH intake--replete
Hyper-bilirubinemia- monitor
Thrombocytopenia--?etiology--ETOH, other--follow for now
Hypothyroidism-- TSH 5- f/u outpt
Morbid obesity due to excess calories--affects all aspects of care- diet counselling-- consider outpt sleep apnea testing
Essential HTN--cont losartan, metoprolol
HLD-- continue home statin
GERD-- cont home omeprazole
Gout- cont allopurinol
DVT proph-- eliquis
Code status--FULL CODE
Detailed discussion regarding patient heart failure and recommended medication of GDMT. Patient Bashir co-pay is significantly high ~ 800/month and not financially possible to continue at this stage. Patient is planning to continue on Eliquis.
Discussed with cardiology wants to continue volume optimizing patient
General: Comfortable and Morbidly Obese
HEENT: Negative Oxygen
Respiratory: Clear to Auscultation
Cardiac: regular Rhythm and S1/S2; Negative Murmur or Rub
GI: Soft, Nontender and Nondistended
Musculoskeletal: Edema, Right Lower Extrem and Edema, Left Lower Extrem
Neuro: Awake, Alert, Oriented, No Motor Deficits and Nonfocal/Grossly Intact
Psych: Calm
Anticipated Discharge: Today
Subjective/Interval History
-
Date of Service: September 19, 2024
denies pain
Objective Data
-
Labs:
Laboratory Results
09/19/24
04:11
WBC 5.6
Hgb 13.1
Hct 40.5
Plt Count 138
Sodium 141
Potassium 3.5
Chloride 98
Carbon Dioxide 33 H
BUN 29 H
Creatinine 1.2
Glucose 113 H
Calcium 9.1
Vital Signs:
Vital Signs
Temp Pulse Resp BP Pulse Ox
97.6 F 83 20 114/84 98
09/19/24 12:17 09/19/24 12:08 09/19/24 12:17 09/19/24 12:08 09/19/24 12:17
I&O
09/18/24 09/19/24 09/20/24
06:59 06:59 06:59
Output Total 4300 / 4300 1000 / 1000
Balance -4300 / -4300 -1000 / -1000
--- NOTE | 2024-09-19 13:43 | W.PN.UPDATE ---
Update Note
Progress Note Update
QTC prolonged. Discussed with Dr. Avila. Home today without dofetilide. Plan for OP PVI consultation- office arranged. Discussed with patient, nursing, and hospitalist.
--- NOTE | 2024-09-19 13:55 | W.DCSUMMARY ---
Discharge Summary
Discharge Data
Date of Admission: 09/10/24
Date of Discharge: 09/19/24
-
Pending Results: Yes
Hospital Course
68-year-old male with past medical history of morbid obesity, hypothyroidism, essential hypertension hyperlipidemia, GERD, gout, diabetes came to the hospital with acute hypoxic respiratory failure and shortness of breath which was likely thought
was multifactorial from the new onset congestive heart failure and atrial fibrillation with rapid ventricular rate. For CHF patient was initially started on IV diuresis which improved his symptoms. Prior to discharge she was transition to oral
Lasix. For his atrial fibrillation he had cardioversion initially which was unsuccessful. He was then started on Tikosyn. He got another cardioversion on 09/19/2024 which was successful. However his QTc continue to increase so Tikosyn was stopped.
He also had right pleural effusion and had thoracentesis which appeared transudative in nature. He was instructed to follow-up for pathology outpatient. He was also instructed to get a sleep study outpatient. Once his symptoms continue to
improve, he was then discharged home with instructions to follow-up with all his physicians outpatient.
Discharge Plan
-
Patient Disposition: Home (Routine Discharge)
Discharge Diagnosis/Procedures: Atrial fibrillation with rapid ventricular rate
Acute congestive heart failure with preserved ejection fraction
Prolonged QTc
Diabetes
Condition: Good
Diet: As tolerated, Low Cholesterol and Diabetic, Carb Controlled
Activity: As tolerated
Driving Restrictions: As prior to admission
Bathing Restrictions: None
Activity Restrictions/Additional Instructions:
Wound Care Instructions
R leg: Clean with saline or soap and water to open ulcers, ABD pad and angela. Change daily and prn drainage. Once drainage small can do q other day.
Mineral oil for dry skin on legs daily.
TUBI INVENTORY MANAGER SIZE G from forefoot to below knee daily, can remove at bedtime.
leg elevation when sitting.
Follow up at wound care center call for an appointment.
Follow-up with pulmonary for sleep study
Referrals:
[facility] [Outside]
Laureen Baca NP [Specified Professional Personl, Cardiology] - 10/02/24 11:40 am
Feroz You MD [Active, Pulmonary Medicine]
Isabela Clarke MD [Active, Cardiology] - 11/20/24 4:20 pm
Loretta Stewart CRNP [Family Provider, Family Practice] - in less than 1 week
Prescriptions:
New
losartan 50 mg Tablet
50 mg PO DAILY Qty: 30 0RF
metoprolol succinate 50 mg Tablet Extended Release 24 Hr
100 mg PO BID Qty: 120 0RF
spironolactone 25 mg Tablet
25 mg PO DAILY Qty: 30 0RF
furosemide 80 mg Tablet
80 mg PO DAILY Qty: 30 0RF
Eliquis 5 mg Tablet
5 mg PO BID Qty: 60 0RF
white petrolatum [Hydrophor] 42 % Ointment
1 applic topical DAILY Qty: 100 0RF
Continued
atorvastatin [Lipitor] 10 mg Tablet
10 mg PO DAILY
indomethacin 50 mg Capsule
50 mg PO BIDPRN PRN (Reason: swelling and pain)
Tart Marcos Extract 1,000 mg Capsule
1,000 mg PO DAILY
allopurinol 100 mg Tablet
100 mg PO DAILY
omeprazole 20 mg Tablet,Delayed Release (Dr/Ec)
20 mg PO DAILY
Discontinued
metoprolol succinate 50 mg Tablet Extended Release 24 Hr
50 mg PO DAILY
aspirin 81 mg Tablet
81 mg PO WE
losartan-hydrochlorothiazide 50-12.5 mg Tablet
1 tab PO DAILY
Discharge Orders:
Discharge Patient (As Directed); Ordered 09/19/24
Ordered By: Jerman Cao
Care Plan Goals
Care Plan Goals:
Problem: Readiness for enhanced knowledge related to diagnosis and treatment plan
Goal: Understand your diagnosis and treatment plan needs, including medications if applicable.
Instructions: Know your diagnosis, underlying causes and treatment plan options, including medications if applicable. Consult with your health care team to learn about your diagnosis and treatment plan, including medications if applicable.
Discharge Date and Time
Discharge Date/Time: 09/19/24 16:40
Print Language: CHINESE
== END 2024-09-19 16:40 | disposition home health service (06) | DRG 291 ==
LOC: IVU 15:10
PROVIDERS: Internal Medicine Cardiovascular Disease; Radiology Diagnostic Radiology; Student in an Organized Health Care Education/Training Program; ADMITTING PHYSICIAN Internal Medicine; ATTENDING PHYSICIAN Internal Medicine; CONSULT PHYSICIAN Internal Medicine Cardiovascular Disease; EMERGENCY PHYSICIAN Emergency Medicine; FAMILY PHYSICIAN Nurse Practitioner
PROC: 0W993ZZ Drainage of Right Pleural Cavity, Percutaneous Approach (ICD-10-PCS; 2024-09-12)
PROC: B24BZZ4 Ultrasonography of Heart with Aorta, Transesophageal (ICD-10-PCS; 2024-09-16)
PROC: 5A2204Z Restoration of Cardiac Rhythm, Single (ICD-10-PCS; 2024-09-16)
DX: I11.0 Hypertensive heart disease with heart failure (principal); I50.31 Acute diastolic (congestive) heart failure; J96.01 Acute respiratory failure with hypoxia; I48.19 Other persistent atrial fibrillation; R17 Unspecified jaundice; Z68.42 Body mass index [BMI] 45.0-49.9, adult; E87.3 Alkalosis; Z11.52 Encounter for screening for COVID-19; E83.42 Hypomagnesemia; D69.6 Thrombocytopenia, unspecified; E03.9 Hypothyroidism, unspecified; E66.01 Morbid (severe) obesity due to excess calories; E78.00 Pure hypercholesterolemia, unspecified; E78.1 Pure hyperglyceridemia; K21.9 Gastro-esophageal reflux disease without esophagitis; M10.9 Gout, unspecified
CPT/HCPCS: 32555; 71045; 71046; 71275; 80048; 80053; 80061; 82945; 83036; 83615; 83735; 83880; 83986; 84157; 84439; 84443; 84484; 85025; 85027; 85730; 87015; 87070; 87205; 87502; 87811; 88112; 89051; 92960; 93005; 93306; 93312; 93320; 93325; 96365; 96366; 96375; 97116; 97162; 97530; 99285; Q9950; Q9967

== ENCOUNTER → 2024-10-03 12:21 | Outpatient (REF) | payer MEDICARE, BC, SELFPAY ==
[2024-10-03 15:04] LABS: ALT (SGPT) 34 U/L (0-50); AST (SGOT) 35 U/L (17-59); Albumin 4.6 g/dl (3.5-5.0); Alkaline Phosphatase 112 U/L (38-126); Blood Urea Nitrogen 57 mg/dl (9-20); Calcium 10.4 mg/dl (8.4-10.2); Carbon Dioxide 26 mmol/L (22-30); Chloride 102 mmol/L (98-107); Glucose 118 mg/dl (70-99); Potassium 4.9 mmol/L (3.5-5.1); Sodium 139 mmol/L (135-145); Total Bilirubin 1.3 mg/dl (0.2-1.3); Total Protein 7.9 g/dl (6.3-8.2); eGFR 46.35
== END ==
LOC: REG 12:21
PROVIDERS: ATTENDING PHYSICIAN Nurse Practitioner; FAMILY PHYSICIAN Nurse Practitioner
DX: I48.19 Other persistent atrial fibrillation (principal); I50.22 Chronic systolic (congestive) heart failure
CPT/HCPCS: 36415; 80053

== ENCOUNTER → 2024-10-16 10:42 | Outpatient (REF) | payer MEDICARE, BC, SELFPAY ==
[2024-10-16 12:01] LABS: Blood Urea Nitrogen 55 mg/dl (9-20); Calcium 10.3 mg/dl (8.4-10.2); Carbon Dioxide 25 mmol/L (22-30); Chloride 102 mmol/L (98-107); Glucose 98 mg/dl (70-99); Potassium 5.5 mmol/L (3.5-5.1); Sodium 137 mmol/L (135-145); eGFR 43.10
== END ==
LOC: REG 10:42
PROVIDERS: ATTENDING PHYSICIAN Obstetrics & Gynecology; FAMILY PHYSICIAN Nurse Practitioner
DX: I50.31 Acute diastolic (congestive) heart failure (principal)
CPT/HCPCS: 36415; 80048

== ENCOUNTER → 2024-12-12 12:13 | Outpatient (REF) | payer MEDICARE, BC, SELFPAY | LOC: DHSLP 12:13 | PROVIDERS: ATTENDING PHYSICIAN Internal Medicine; FAMILY PHYSICIAN Nurse Practitioner | DX: G47.33 Obstructive sleep apnea (adult) (pediatric) (principal) | CPT/HCPCS: 95800 ==

== ENCOUNTER → 2024-12-31 09:56 | Outpatient (REF) | payer MEDICARE, BC, SELFPAY ==
[2024-12-31 10:43] LABS: Hematocrit 35.4 % (39.0-52.0); Hemoglobin 12.0 g/dL (13.0-18.0); Mean Corp Hgb Conc. 33.9 g/dL (33.0-37.0); Mean Corpuscular Volume 88.5 fL (80.0-94.0); Nucleated Red Blood Cells % 0 % (-); Platelet Count 173 10^3/uL (130-400); Red Cell Dist. Width 19.6 % (11.5-14.5)
[2024-12-31 12:43] LABS: ALT (SGPT) 18 U/L (0-50); AST (SGOT) 24 U/L (17-59); Albumin 3.9 g/dl (3.5-5.0); Alkaline Phosphatase 46 U/L (38-126); Blood Urea Nitrogen 22 mg/dl (9-20); Calcium 9.2 mg/dl (8.4-10.2); Carbon Dioxide 19 mmol/L (22-30); Chloride 112 mmol/L (98-107); Glucose 71 mg/dl (70-99); Potassium 3.3 mmol/L (3.5-5.1); Sodium 139 mmol/L (135-145); Total Protein 6.0 g/dl (6.3-8.2); eGFR > 60.00
== END ==
LOC: SDSPAT 09:56
PROVIDERS: ATTENDING PHYSICIAN Internal Medicine Cardiovascular Disease; FAMILY PHYSICIAN Nurse Practitioner; OTHER PHYSICIAN Internal Medicine Cardiovascular Disease
DX: I48.19 Other persistent atrial fibrillation (principal)
CPT/HCPCS: 36415; 80053; 85025; 86850; 86900; 86901; 93005

== ENCOUNTER 2025-01-07 10:31 | Day surgery (SDC) | payer MEDICARE, BC, SELFPAY ==
[2024-12-31 10:22] VITALS: BMI 39.2
--- NOTE | 2024-12-31 12:29 | HPS.HSE ---
Family Physician
-
Family Physician: NO INTERVIEW UNKNOWN
Chief Complaint
-
Persistent atrial fibrillation. Typical and atypical atrial flutter.
History of Present Illness
The patient is a 69 year old morbidly obese, male presenting today for persistent atrial fibrillation and typical/atypical atrial flutter. He does report symptoms of fatigue, dyspnea, and heart 'fluttering' secondary to his atrial
arrhythmias. He previously underwent 3 cardioversions. He is on current pharmacological therapy with Metoprolol Succinate. He does report compliance with Dabigatran for oral anticoagulation due to a [id number] of 3. Of note, he was previously on
Eliquis but was switched to Dabigatran due to financial reasons. He notes that his symptoms associated with his atrial arrhythmias greatly interfere with his activities of daily living and overall impact his quality of life. He is interested in
pursuing with an Affera atrial fibrillation and atrial flutter ablation for further arrhythmia management. He denies any complaints today such as chest pain, shortness of breath at rest, nausea, vomiting, diarrhea, lightheadedness, dizziness, cough,
sore throat, or fever.
Medical History
Past Medical History
Past Medical History: Reports Other
Additional Past Medical History:
1. Persistent atrial fibrillation and typical/atypical atrial flutter, status post cardioversion x3; pharmacological therapy with Metoprolol Succinate and oral anticoagulation with Dabigatran.
2. Hypertension.
3. Hyperlipidemia.
4. Congestive heart failure, preserved ejection fraction.
5. Mild pulmonary hypertension.
6. Mild-moderate mitral regurgitation.
7. Childhood asthma.
8. Recently diagnosed obstructive sleep apnea, awaiting Pulmonary recommendations.
9. Renal insufficiency.
10. Non-insulin dependent diabetes.
11. GERD.
12. Brand's esophagus.
13. Hiatal hernia.
14. Colon polyps, including tubular adenoma.
15. Diverticulosis.
16. Gout.
17. Chronic postnasal drip.
18. Mild anemia.
19. Hearing impairment bilaterally.
20. Mild hypokalemia, asymptomatic.
21. Obesity, BMI 39.2.
Past Surgical History: Reports Other
Additional Past Surgical History:
1. Cardioversion x3.
2. Cholecystectomy.
3. Colonoscopy.
4. Endoscopy.
Social History
Tobacco: Non-smoker
Alcohol: Other (He drinks alcohol 'a couple times a week.')
Personal:
Living: Other (He lives with his in a 2 story condo. )
Family History
Family History: Not pertinent
Allergies / Home Medications
Allergy/Medication List:
Home medications:
1. Allopurinol 100 mg p.o. daily.
2. Atorvastatin 10 mg p.o. daily.
3. Dabigatran 150 mg p.o. twice a day.
4. Furosemide 40 mg p.o. daily.
5. Indomethacin 150 mg p.o. twice a day.
6. Losartan 50 mg p.o. daily.
7. Metoprolol Succinate 100 mg p.o. twice a day.
8. Omeprazole 20 mg p.o. daily.
9. Spironolactone 25 mg p.o. daily.
10. Tart odom extract 2000 mg p.o. daily.
11. Vitamin D3 1 tablet p.o. daily.
Allergies: Penicillin.
Review of Systems
-
A 12 point ROS was completed and negative except as noted: Yes
Physical Exam
Vital Signs
Blood pressure 115/66. Heart rate 59. Respirations 18. Pulse ox 97% on room air.
Height 5 feet, 7 inches. Weight 113.4 kg. BMI 39.2.
Physical Exam
General: Well Developed, Well Nourished and No Apparent Distress
HEENT: NormoCephalic, Moist mucous membranes, Atraumatic and PERRLA
Respiratory: Clear
Cardiac: Bradycardia
GI: Soft, Non Tender, Non Distended and Other (Obese. )
Musculoskeletal: Normal Gait & Station and Other (Trace sock-line edema bilaterally.)
Skin: Warm and Dry
Neuro: AO x 3 and Nonfocal/grossly intact
Laboratory Results
-
DIAGNOSTIC STUDIES as of 12/31/2024: White blood cell count 7.2. Hemoglobin 12.0. Platelet count 173,000.Sodium 139. Potassium 3.3. BUN 22. Creatinine 0.9. Glucose 71.Calcium 9.2. AST 24. ALT 18. Albumin 3.9. Type and screen B positive.
EKG 12/31/2024: Sinus bradycardia. No specific ST and T wave abnormality.
Transesophageal echocardiogram 09/16/2024: Low normal left ventricular systolic function. LVEF 50%. No left atrial appendage thrombus.
Impression/Plan
-
IMPRESSION/PLAN:
1. Persistent atrial fibrillation and typical/atypical atrial flutter: The patient is in need of an Affera atrial fibrillation and atrial flutter ablation with Dr. Isabela Clarke on 01/07/2025. The benefits and risks of the procedure have been
explained to the patient. The patient understands these risks and wishes to proceed. He will not be required to undergo a pre-procedural transesophageal echocardiogram as he has been compliant with his home oral anticoagulation. He is aware to
continue Dabigatran uninterrupted prior to his ablation.
2. Mild hypokalemia, asymptomatic: To correct this, his Furosemide will either be held a few days or he will be prescribed a potassium supplement while continuing Lasix. Plan to discuss this with Dr. Clarke pre-operatively. A repeat potassium can
be drawn at the surgeon's discretion the morning of his procedure.
[2025-01-07] VITALS (8 sets, daily range): BP systolic 93–106; BP diastolic 58–69; BMI 39.2
[2025-01-07 12:51] LABS: Blood Urea Nitrogen 32 mg/dl (9-20); Calcium 9.4 mg/dl (8.4-10.2); Carbon Dioxide 24 mmol/L (22-30); Chloride 107 mmol/L (98-107); Estimated Creatinine Clearance 69 ml/min; Glucose 92 mg/dl (70-99); Sodium 136 mmol/L (135-145); eGFR > 60.00
[2025-01-07 12:59] LABS: Potassium 4.8 mmol/L (3.5-5.1)
[2025-01-07 14:37] LABS: ACT-LR - POC > 397 Seconds (116-155)
[2025-01-07 14:37] LABS: ACT-LR - POC > 397 Seconds (116-155)
--- NOTE | 2025-01-07 14:38 | ITS.CL.ABL ---
Nutrient Management Specialist - Ablation
Ablation
Procedure Report:
AFIB ablation:
Mr. Cantor is a very pleasant 69 yr old gentleman with h/o persistent AF and flutters and is recommended AF/FL ablation. Patient presented today to the EP lab for atrial fibrillation / flutter ablation.
Date of Procedure:
01/07/2025
Indications:
Recurrent persistent atrial fibrillation / atrial flutter
Pre-Operative Diagnosis:
Persistent atrial fibrillation /Atrial flutter
Post-Operative Diagnosis:
Persistent atrial fibrillation /Atrial flutter
Procedure Performed:
Atrial fibrillation ablation with pulmonary vein isolation
Left atrial flutter � roof dependent ablation
Posterior wall isolation
Mitral isthmus ablation for will-mitral flutter ablation
Performing Physician:
Isabela Clarke MD
Assistants:
EP staff
Anesthesia:
See anesthesia records
Detailed Description of the Procedure:
Written informed consent was obtained from the patient after a full explanation of the risks and benefits of the procedure including the risks of sedation and anesthesia.
The patient was brought to the electrophysiology laboratory in stable condition in fasting state. Continuous electrocardiographic and hemodynamic monitoring was initiated.
The initial rhythm was sinus.
Time out:
The procedure site was meticulously prepared with surgical scrub and allowed to dry with no pooling. Sterile draping was applied to cover the procedure site. The image intensifier was draped with sterile bag and positioned over the patient.
Prior to the start of the procedure a surgical pause was performed with in agreement from anesthesia, EP staff with double identifier and explanation of the procedure, plan and site of the procedure stated with allergies and medications and
pertinent labs reviewed.
After infusion of local anesthetic, vascular access was obtained under ultrasound guidance and sheaths were placed over guide wire as detailed below. The images were stored in patient chart.
Sheaths:
��������������� Agilis sheath in right femoral vein upgraded from 8Fr in right femoral vein
��������������� 9Fr in right femoral vein
���������������
Catheters:
��������������� The Affera Sphere 9 catheter -bidirectional D/F� - at locations of HRA, RV, LA and LV.
��������������� ICE catheter - at locations of RA, SVC, and RV.
���������������
A 7000 units of heparin was given
Intracardiac ECHO:
An 8-Libyan AcuNav intracardiac ECHO (ICE) probe was advanced through the 9-Libyan sheath in the right femoral vein into the right atrium under fluoroscopic and ICE ultrasound image guidance and a baseline ECHO study was performed. The left atrial
size was severely dilated. There was trace tricuspid regurgitation. There was mild mitral regurgitation. The aortic valve was normal. There was borderline reduced left ventricular systolic function. There is trace pericardial effusion. All the four
veins were identified and has good flow identified. No definite clot seen.�
During the procedure, ICE was used for monitoring of complications, guidance of trans-septal puncture, monitor the catheter position and tracking ablation lesions. No change in the pericardial space noted throughout the procedure.
Trans-septal Puncture:
Heparin was initiated and infused to maintain appropriate ACT. A J-tipped guidewire was advanced through into the superior vena cava under fluoroscopic and ICE guidance. The Agilis sheath was advanced into the superior vena cava over a guidewire. A
BRK needle with stylet was advanced inside the Agilis sheath. The apparatus was withdrawn until it was in contact with the fossa ovalis. The position was adjusted based on fluoroscopy and ultrasound images from ICE. Under fluoroscopic, hemodynamic
and ICE ultrasound guidance, left atrium was cannulated by advancing the needle. Once atrial septum was cannulated, the needle was pulled back and the guide wire was advanced through the needle into the left atrium. The guide wire was advanced into
the left superior pulmonary vein. Both the sheath and the dilator was advanced into the left atrium. The dilator with the needle was withdrawn. Blood was aspirated from the Agilis sheath and arterial blood confirmed. The sheath was flushed. Saline
injection noted into the left atrium on ICE. The waveform of the LA pressure was recorded. The mapping catheter was advanced in the Agilis sheath into the left pulmonary vein.
3D Electroanatomic Mapping:
Using the Sphere 9 Affera catheter advanced through Agilis sheath into the left atrium, an electroanatomic map (EAM) of the left atrium was created using [employer]� mapping system with [employer] software. The map was used for localization of catheter
position and tacking of ablation lesions.
The EAM of the left atrium showed a total of 3 PVs with two left and a large right sided pulmonary trunk with 3 pulmonary veins. There was sporadic scarring noted in the LA. The posterior wall had scattered signals. There was a large areas of scar
noted on the anterior wall with severely fractionated signals on the anterior wall. The LA was dilated. �
Following the EAM, preparation were made for ablation.
Ablation:
Ablation # 1: Atrial fibrillation ablation - Pulmonary vein Isolation:
Pulsed field ablation was performed using an open irrigation, bidirectional, contact sensing, dual energy ablation catheter (Transfercara sphere -9) by completing the circumferential lesions around the left and right pulmonary veins achieving pulmonary
vein isolation.
All PVI were rechecked at the end of the case and remained isolated with dissociated and local capture with pacing. Entrance and exit block were demonstrated in all veins.
Ablation # 2: Roof line Formation:
There was a clear channel of electrical activity left in the posterior wall with multiple CFAE and AF areas on the roof and ablation in that area increased the risk of atrial flutter and decision was made to create a roof line to block a slow
conduction. A set of pulsed field ablations were placed on the roof line connecting the left superior pulmonary vein ablation lesions to the right superior pulmonary vein lesions rings.
The LA was mapped indicating the block in the roof with propagation of electric wave from floor to the roof in the posterior wall.
Ablation # 3: Posterior wall isolation with the Box lesions set Formation:
There was a significant fractionation seen in the posterior wall and LA AF foci along with CFAE made it clear as the posterior wall is critical in maintaining the atrial fibrillation and the decision was made to isolate the posterior wall by
creating a �Box� lesions.
A set of Pulsed field ablations were placed on the floor line connecting the left inferior pulmonary vein ablation lesions to the right inferior pulmonary vein lesions rings.
The sphere 9 in the posterior wall showed entrance block and the pacing from the posterior wall showed no exit from the box lesions confirming the exit block.
Ablation # 4: Mitral isthmus ablation for will-mitral flutter ablation
Mitral line was done for the mitral isthmus from the right anterior PV antrum to the anteior wall with ablation lesions and continued to the mitral annulus. The pulsed field ablations were placed at the isthmus and switched to radiofrequency once
close to the mitral annulus.
Confirmation of the PVI and bidirectional block:
Following achievement of entrance block at the pulmonary veins, pacing from the Sphere 9 affera catheter in each of the four veins at 20 milliamps for 4 milliseconds showed entrance and exit block.
The LA was mapped with The Transfercara� mapping system with [employer] software in sinus rhythm confirming the line of block at the ablation lesions lines.
The AV ester functions are deemed within normal range.
All PVI were rechecked at the end of the case. Entrance and exit block were demonstrated.
Procedure End
ICE study was done again that showed no epicardial accumulation. No complications noted.
Following the completion of the EP study, catheters were removed. Protamine 40 mg was given at the end of the procedure and ACT was checked repeatedly. The sheaths were removed and hemostasis achieved with VASCADE and manual compression.
Left atrial Pressure:
Pre-Procedure: Mean LA pressure was 6mmHg
Post-Procedure: Mean LA pressure was 12mmHg
Post-Procedure: Mean RA pressure was 7mmHg
Estimated Blood loss:
<10 cc
Specimens Removed:
None.
Implants / Devices:
None
Urine output:
None
Packs / Drains/ Tubes:
None
Instrument / Sponge Count Correct:
Yes
Complications of the Procedure:
None
Condition of Patient at Time of Transfer:
Hemodynamically stable with no neurological or vascular compromise.
Summary:
Successful atrial fibrillation ablation with pulmonary vein isolation, roof flutter ablation, anterior wall substrate modification, Mitral isthmus ablation for will-mitral flutter ablation,
--- NOTE | 2025-01-07 16:31 | W.PN.UPDATE ---
Update Note
Progress Note Update
Pt seen post PFA. Right groin site with vascade closure, no ht/bleeding. OOB ambulating, urinating without difficulty. Post EKG NSR 75, no acute changes. Resume pradaxa tonight, continue other meds as before. Followup at [facility] arranged.
Pt had been hypokalemic last week with PAT labs, K+ 3.3. He was instructed per Dr. Clarke to hold lasix, which he did. Repeat BMP this morning with improved K+ to 4.8. He will resume lasix 40mg daily with KCl 20meq every other day, repeat BMP in [address] Clarke aware and also office [facility] who he is seeing in followup on 01/21.
Planned d/c later today if groin site/tele remain stable.
== END 2025-01-07 17:30 | disposition home or self-care (01) ==
LOC: CATH 10:31
PROVIDERS: Nurse Practitioner; ATTENDING PHYSICIAN Internal Medicine Cardiovascular Disease; FAMILY PHYSICIAN Nurse Practitioner; OTHER PHYSICIAN Nurse Practitioner
DX: I48.19 Other persistent atrial fibrillation (principal); I48.4 Atypical atrial flutter; I48.3 Typical atrial flutter; I11.0 Hypertensive heart disease with heart failure; E78.5 Hyperlipidemia, unspecified; I27.20 Pulmonary hypertension, unspecified; I34.0 Nonrheumatic mitral (valve) insufficiency; J45.909 Unspecified asthma, uncomplicated; G47.33 Obstructive sleep apnea (adult) (pediatric); E11.9 Type 2 diabetes mellitus without complications; Z87.19 Personal history of other diseases of the digestive system; K21.9 Gastro-esophageal reflux disease without esophagitis; Z68.39 Body mass index [BMI] 39.0-39.9, adult; E87.6 Hypokalemia; Z86.0101 Personal history of adenomatous and serrated colon polyps; M10.9 Gout, unspecified; R09.82 Postnasal drip; H91.93 Unspecified hearing loss, bilateral; D64.9 Anemia, unspecified; K44.9 Diaphragmatic hernia without obstruction or gangrene; Z79.899 Other long term (current) drug therapy; Z79.01 Long term (current) use of anticoagulants; Z90.49 Acquired absence of other specified parts of digestive tract; Z88.0 Allergy status to penicillin; I50.32 Chronic diastolic (congestive) heart failure
CPT/HCPCS: C1769; C1760; C1733; C1766; C1892; C1759; 80048; 85347; 86900; 86901; 93005; 93655; 93656; 93657

== ENCOUNTER → 2025-01-14 09:48 | Outpatient (REF) | payer MEDICARE, BC, SELFPAY ==
[2025-01-14 13:44] LABS: Blood Urea Nitrogen 30 mg/dl (9-20); Calcium 9.5 mg/dl (8.4-10.2); Carbon Dioxide 25 mmol/L (22-30); Chloride 105 mmol/L (98-107); Glucose 96 mg/dl (70-99); Potassium 4.9 mmol/L (3.5-5.1); Sodium 138 mmol/L (135-145); eGFR > 60.00
== END ==
LOC: REG 09:48
PROVIDERS: ATTENDING PHYSICIAN Nurse Practitioner; FAMILY PHYSICIAN Internal Medicine Cardiovascular Disease
DX: Z09 Encounter for follow-up examination after completed treatment for conditions other than malignant neoplasm (principal)
CPT/HCPCS: 36415; 80048

== ENCOUNTER → 2025-01-27 10:35 | Outpatient (REF) | payer MEDICARE, BC, SELFPAY ==
[2025-01-27 12:17] LABS: Blood Urea Nitrogen 33 mg/dl (9-20); Calcium 9.1 mg/dl (8.4-10.2); Carbon Dioxide 29 mmol/L (22-30); Chloride 106 mmol/L (98-107); Glucose 101 mg/dl (70-99); Potassium 4.9 mmol/L (3.5-5.1); Sodium 139 mmol/L (135-145); eGFR 59.10
== END ==
LOC: REG 10:35
PROVIDERS: ATTENDING PHYSICIAN Nurse Practitioner; FAMILY PHYSICIAN Nurse Practitioner
DX: I48.19 Other persistent atrial fibrillation (principal); I50.32 Chronic diastolic (congestive) heart failure
CPT/HCPCS: 36415; 80048

== ENCOUNTER → 2025-02-27 12:03 | Outpatient (REF) | payer MEDICARE, BC, SELFPAY ==
[2025-02-27 12:48] LABS: Hematocrit 38.5 % (39.0-52.0); Hemoglobin 12.4 g/dL (13.0-18.0); Mean Corp Hgb Conc. 32.2 g/dL (33.0-37.0); Mean Corpuscular Volume 102.1 fL (80.0-94.0); Nucleated Red Blood Cells % 0 % (-); Platelet Count 150 10^3/uL (130-400); Red Cell Dist. Width 13.3 % (11.5-14.5)
[2025-02-27 13:34] LABS: Glycohemoglobin (HgbA1c) 4.9 % (4.0-5.9)
[2025-02-27 13:36] LABS: ALT (SGPT) 15 U/L (0-50); AST (SGOT) 24 U/L (17-59); Albumin 4.2 g/dl (3.5-5.0); Alkaline Phosphatase 51 U/L (38-126); Blood Urea Nitrogen 23 mg/dl (9-20); Calcium 9.8 mg/dl (8.4-10.2); Carbon Dioxide 27 mmol/L (22-30); Chloride 101 mmol/L (98-107); Glucose 80 mg/dl (70-99); HDL Cholesterol 82 mg/dl; LDL Cholesterol, Calculated 82 mg/dl; Potassium 4.3 mmol/L (3.5-5.1); Sodium 137 mmol/L (135-145); Total Protein 7.0 g/dl (6.3-8.2); Very Low Density Lipoprotein 18 mg/dl (0-30); eGFR > 60.00
[2025-02-27 14:10] LABS: PSA, Total - Screen 1.59 ng/ml (0.0-4.0)
[2025-02-27 14:35] LABS: Uric Acid 8.4 mg/dl (3.5-8.5)
== END ==
LOC: REG 12:03
PROVIDERS: ATTENDING PHYSICIAN Nurse Practitioner
DX: R73.01 Impaired fasting glucose (principal); Z00.00 Encounter for general adult medical examination without abnormal findings; M10.9 Gout, unspecified; Z12.5 Encounter for screening for malignant neoplasm of prostate; I10 Essential (primary) hypertension
CPT/HCPCS: 36415; 80053; 80061; 83036; 84550; 85025; G0103